=== PATIENT | male | born 1940 | race Caucasian/White ===

== ENCOUNTER 2020-10-17 10:25 | Outpatient (CLI) | payer MEDICARE, BC, SELFPAY ==
--- NOTE | ~2020-10-17 | US_ITS ---
EXAMINATION: US thyroid EXAM DATE: 10/17/2020 10:52 INDICATION: E05.90 - Thyrotoxicosis, unspecified without thyrotoxic crisis or storm. TECHNIQUE: Multiple grayscale and Doppler images of the thyroid were obtained (by a technologist who performed the scan) and subsequently reviewed. Individual nodules and recommendations may be reporte d in accordance with TI-RADS system as designated by the 2017 ACR White Paper TI-RADS committee. Comp arison is made to prior examination from 06/18/2019. FINDINGS: The right thyroid lobe measures 6.7 x 3.1 x 3.0 cm, moderately enlarged, and the left measures 5.9 x 3.2 x 2.7 cm, also moderately enlarged. Diffusely heterogeneous thyroid echogenicity. Several thyroid nodules, largest is predominantly cystic in the right thyroid lobe measuring up to 1.3 cm, containin g echogenic foci with large, tail artifact, consistent with colloid cyst. IMPRESSION: Stable multinodular goiter. Return to clinical follow-up, repeat ultrasound if addition al palpable abnormality develops. Reviewed, dictated and finalized at location A. IMPRESSION: Stable multinodular goiter. Return to clinical follow-up, repeat ultrasound if additional palpable abnormality develops.
== END 2020-10-17 10:26 | disposition home or self-care (01) ==
PROVIDERS: PCP Internal Medicine Endocrinology, Diabetes & Metabolism; Visit Provider Internal Medicine Endocrinology, Diabetes & Metabolism
DX: E04.2 Nontoxic multinodular goiter (principal); E05.90 Thyrotoxicosis, unspecified without thyrotoxic crisis or storm
CPT/HCPCS: 76536

== ENCOUNTER 2021-01-22 09:23 | Outpatient (CLI) | payer MEDICARE, BC, SELFPAY ==
--- NOTE | 2021-02-15 19:03 | WPDSLEEPSTUD ---
Sleep Study Date of Study: 01/22/21 Ordering Provider: Elizabeth Johnson MD Interpreting Physician: Elizabeth Johnson MD Sleep Study Type: Polysomnogram Height: 1.83 m Weight: 139.253 kg Body Mass Index: 41.6 Neck Circumference (inches): 18 [place]: 3 Reason for Sleep Study Known obstructive sleep apnea, on auto PAP with an old machine, needs re-evaluation; atrial fibrillation Sleep History Jose Gates Jr is a 81 year old man who has not had enough sleep for many years. 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 He did not have enough sleep for many years. He has a long history of obstructive sleep apnea, has a device from 2004 which is on AutoPap 7- 16 cm since 2014. He has no compliance data since 2018. His legs bother him significantly and he moves his legs constantly which tears up his sheets. Some of this is due to right hip pain and he is scheduled for a right hip replacement on February 19. He rarely naps, maybe once or twice per month. He does not have a morning headache and does not have a dry mouth in the morning. As far as memory mood and concentration he can't remember things as well as he use to. He does not sleep with a pillow. He uses a small blanket rolled into a tube. He has gained 20 lb in the last year. He swallows air at night. He only has problems with heartburn symptoms if he eats after 7:30 p.m. and has spicy food. He does not have any problem with nasal allergies. He blows his nose once in the morning. His sleeps in another room because he flails his arms at night and she does not want to get a broken nose. He has slept like this for many years. He does not wake up feeling short of breath. He rarely snores while using APAP. He does not sweat excessively at night or notice his heart pounding at night. He rarely falls asleep in the day, rarely falls asleep involuntarily, and rarely falls asleep while driving. He does not have loss of muscle tone with strong emotion. He rarely has daytime difficulties due to sleepiness, now retired. He does not feel paralyzed on waking or falling asleep. He does not have vivid dreams on falling asleep or waking. He is not afraid to go to sleep. He does not have nightmares. He does not recall his dreams. He does not have sadness, depression or anxiety. He rarely notices parts of his body jerking, rarely kicks at night, rarely has aching and crawling feelings in his legs. He does not have morning jaw pain and does not grind his teeth at night. He is frequently awakened at [facility] with pain, wakes up feeling stiff, with sore achy muscles and pain in the neck and spine. 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 His normal bedtime is between 11:00 p.m. and 11:30 p.m. falling asleep quickly, waking 3-4 times at night due to hip pain, and this may occur 2-3 hours after sleep onset. Other than that he does not move until about 5:00 a.m. when he possibly urinates again. Sometimes he goes back to bed until 5:30 - 6:00 a.m. Sometimes he returns to bed until 7:30 a.m.. A nap last 30 minutes and occurs between 2:00 p.m. and 5:00 p.m. A short nap may be refreshing. He always wakes up feeling refreshed. Habits: no coffee, little tea; No tobacco. No alcohol or recreational drugs. PMFSH Past Medical History Medical History (Updated 02/10/21 @ 11:00 by Armando Miner MD) Afib Cancer CHF (congestive heart failure), NYHA class I Heart disease Hyperthyroidism Obesity Obstructive sleep apnea SOB (shortness of breath) Thyroid disease Surgical History Surgical History (Updated 02/10/21 @ 10:57 by Armando Miner MD) History of bilateral knee replacement Family History Family History Mother Diabetes mellitus Father Family history of malignant neoplasm Family history of chronic obstr
[2021-02-15 19:07] VITALS: BMI 41.6
== END 2021-01-23 05:30 | disposition home or self-care (01) ==
LOC: ANHCSM 09:24
PROVIDERS: PCP Family Medicine; Visit Provider Internal Medicine Critical Care Medicine
DX: G47.33 Obstructive sleep apnea (adult) (pediatric) (principal)
CPT/HCPCS: 95810

== ENCOUNTER 2021-02-06 12:04 | Emergency (ER) | payer MEDICARE, BC, SELFPAY ==
--- NOTE | ~2021-02-06 | XR_ITS ---
XR ankle LT min 3V DATE: 02/06/2021 12:26 INDICATION: Fall. Medial pain. TECHNIQUE: 4 views COMPARISON: None FINDINGS: Prominent plantar and minimal posterior calcaneal enthesopathy. There are osteoarthritic changes at the tarsal and tarsometatarsal joints. There is diffuse soft tissue swelling of the ankle. No fracture or dislocation of the ankle or disruption of the ankle mortise is detected. IMPRESSION: Soft tissue swelling No fracture or dislocation of the ankle Calcaneal enthesopathy Osteoarthritic changes of the foot Reviewed, dictated and finalized at location B.
--- NOTE | ~2021-02-06 | XR_ITS ---
EXAMINATION: XR tibia fibula LT 2V INDICATION: Bruising and leg pain after fall TECHNIQUE: Two views of the left tibia and fibula are obtained on four radiographs. COMPARISON: None available FINDINGS: There is soft tissue swelling of the leg. No fracture is identified. Changes of total knee arthroplasty are noted. 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 Heterotopic ossification projecting post erior to the knee could reflect calcified loose bodies. IMPRESSION: 1. Soft tissue swelling without acute osseous abnormality. Reviewed, dictated and finalized at location A.
[2021-02-06 12:11] VITALS: BP 130/89; PULSE 97; RESP 18; O2SAT 96
--- NOTE | 2021-02-06 13:41 | ED.LOWEXIN ---
HPI - Extremity Injury (Lower) General Chief Complaint: Extremity Injury, Lower Stated Complaint: I stepped in a hole on tuesday left ankle Time Seen by Provider: 02/06/21 12:08 Source: RN notes reviewed History of Present Illness HPI Narrative: Patient presents emerged department from home for left ankle pain. Patient states that 5 days ago he stepped into a hole while walking and twisted his left ankle he states he had pain in his ankle since that time as well as swelling and bruising patient states pain is over the medial lateral and posterior left ankle denies any other trauma or injury patient states he not taking thing for pain at home does not wish to take anything he denies any numbness or tingling the extremities or any other Related Data Home Medications Medication Instructions Recorded Confirmed cholecalciferol (vitamin D3) 25 1,000 unit PO DAILY 07/30/19 12/02/20 mcg (1,000 unit) capsule furosemide 40 mg tablet 40 mg PO DAILY tablet 07/30/19 12/02/20 metoprolol tartrate 25 mg tablet 25 mg PO DAILY 07/30/19 12/02/20 rosuvastatin 10 mg tablet 10 mg PO DAILY 07/30/19 12/02/20 zinc amino acid chelate 50 mg 50 mg PO DAILY tablet 07/30/19 12/02/20 tablet apple cider vinegar 600 mg capsule mg PO 10/09/19 12/02/20 ascorbate calcium (vitamin C) 500 500 mg PO BID 10/09/19 12/02/20 mg tablet rivaroxaban 20 mg tablet 20 mg PO DAILY 10/09/19 12/02/20 mecobalamin (vitamin B12) 1,000 1,000 mcg PO DAILY 12/02/20 12/02/20 mcg chewable tablet aspirin 81 mg tablet,delayed 81 mg PO DAILY 01/20/21 release Allergies Allergy/AdvReac Type Severity Reaction Status Date / Time naproxen [From Aleve] Allergy Mild muscle Verified 02/06/21 12:17 soreness Review of Systems Review of Systems: Gen.: Denies fevers or chills Musculoskeletal: See HPI Neuro: Denies numbness, tingling, weakness Skin: Denies rash Endo: Denies DM PMFSH Past Medical History Medical History Afib Cancer CHF (congestive heart failure), NYHA class I Heart disease Hyperthyroidism Obesity Obstructive sleep apnea SOB (shortness of breath) Thyroid disease Family History Family History Mother Diabetes mellitus Father Family history of malignant neoplasm Family history of chronic obstructive pulmonary disease Social History Social History Smoking status: Never smoker Second hand tobacco smoke exposure: No Alcohol intake: never Substance use: never Substance use type: does not use Gender identity (if verbalized by the patient): Male Exam Narrative: APPEARANCE: No acute distress, nontoxic, resting in bed Eyes: EOMI HEENT: Normocephalic, atraumatic, RESPIRATORY: No respiratory distress MUSCULOSKELETAl: Swelling ecchymosis over the medial lateral and posterior ankle swelling into the foot pain with full dorsiflexion of the foot dorsalis pedis pulse 2+ neurovascular intact no tenderness of the proximal fibula patient is unable to fully lay on his stomach for full Gil test but attempted modified Gil test laying on his side does show tenderness in the left calf with movement of the foot NEURO: Awake and alert. Following commands, speech normal, no focal deficits SKIN:: Warm, dry. Normal Color no rash or lesions Course Course Emergency Course: Called discussed with Dr. Miner discussed x-ray results recommends patient uses walker with Isma wrap and follow-up as an outpatient Discussed with patient results of workup and diagnosis. Discussed need for follow-up with primary care, proper use of medication, and reasons to return to the emergency department. Patient understands and agrees to current treatment plan patient does have a walker with him in the ED today Vital Signs Vital signs: Vital Signs Pulse Rate 97 02/06/21 12:11 Respiratory Rate 18
== END 2021-02-06 14:03 | disposition home or self-care (01) ==
PROVIDERS: Emergency Provider Emergency Medicine; PCP Family Medicine
DX: S93.402A Sprain of unspecified ligament of left ankle, initial encounter (principal); I48.91 Unspecified atrial fibrillation; I50.9 Heart failure, unspecified; E05.90 Thyrotoxicosis, unspecified without thyrotoxic crisis or storm; G47.33 Obstructive sleep apnea (adult) (pediatric); E07.9 Disorder of thyroid, unspecified; Z79.82 Long term (current) use of aspirin; Z79.01 Long term (current) use of anticoagulants; X50.9XXA Other and unspecified overexertion or strenuous movements or postures, initial encounter
CPT/HCPCS: 73590; 73610; 99284

== ENCOUNTER 2021-02-20 21:55 | Inpatient (IN) | payer MEDICARE, BC, SELFPAY ==
--- NOTE | ~2021-02-20 | XR_ITS ---
XR hip RT min 2V DATE: 02/21/2021 09:11 INDICATION: Recent hip replacement. Right leg weakness. TECHNIQUE: 4 views of right hip COMPARISON: None FINDINGS: Right hip arthroplasty. No fracture or dislocation is detected. IMPRESSION: Right hip arthroplasty Reviewed, dictated and finalized at location A. IMPRESSION: Right hip arthroplasty
--- NOTE | ~2021-02-20 | CT_ITS ---
EXAMINATION: CT brain wo con DATE: 02/20/2021 23:15 INDICATION: Headache. Headache behind eyes. TECHNIQUE: Computed tomography (CT) of the head was performed without intravenous contrast. The mA wa s adjusted according to patient size. Iterative reconstruction technique was employed. Exam dose: 75 6.67 mGy-cm total exam DLP. COMPARISON: None FINDINGS: Bilateral vertebral artery and carotid siphon internal carotid artery calcifications. There is nonspecific diminished attenuation of the cerebral white matter, likely due to chronic small vessel ischemic changes. There is age-consistent moderate cerebral volume loss. No intracranial mass lesion or hemorrhage or cerebrovascular accident is evident. No midline shift or mass effect effect. The orbital contents are unremarkable. No subdural or epidural hematoma. No skull fracture or bone destruction. Included paranasal sinuses and mastoid air cells are unremarka ble. IMPRESSION: Cerebral atherosclerosis and chronic small vessel ischemic changes of cerebral white mat ter No acute intracranial finding Reviewed, dictated and finalized at Location A. Reviewed, dictated and finalized at location A. IMPRESSION: Cerebral atherosclerosis and chronic small vessel ischemic changes of cerebral white matter No acute intracranial finding
--- NOTE | ~2021-02-20 | CT_ITS ---
EXAMINATION: CT lumbar spine wo con DATE: 02/22/2021 14:16 INDICATION: Inability to feel the urge to urinate. TECHNIQUE: Computed tomography (CT) of the lumbar spine was performed without intravenous contrast. A utomated exposure control and iterative reconstruction technique were employed. The dose-length produ ct was 1538.11 mGy-cm. COMPARISON: None FINDINGS: There is 7 degrees levocurvature of lumbar spine. There is 3 mm retrolisthesis of L1 on L2 and 4 mm anterolisthesis of L4 on L5. There is mild chronic anterior wedging of T11-L1 vertebral bodi es. There is severely decreased disc height from T12-L1 through L5-S1. There is interbody fusion at L 2-L3. There are bridging endplate osteophytes at T12-L1. There is a total right hip arthroplasty. The re is severe left hip osteoarthritis. The following disc levels are specifically discussed: L1-L2: The disc is bulging. There is severe bilateral facet joint osteoarthritis. There is moderate b ilateral neural foraminal stenosis. There is mild central canal stenosis. L2-L3: The disc is bulging. There is severe right and moderate left facet joint osteoarthritis. There is moderate bilateral neural foraminal stenosis. There is mild central canal stenosis. L3-L4: The disc is bulging. There is severe right and moderate left facet joint osteoarthritis. There is moderate bilateral neural foraminal stenosis. There is severe central canal stenosis. L4-L5: The disc is bulging. There is severe bilateral facet joint osteoarthritis. There is moderate b ilateral neural foraminal stenosis. There is moderate central canal stenosis. L5-S1: The disc is bulging. There is severe bilateral facet joint osteoarthritis. There is mild right and moderate left neural foraminal stenosis. There is mild central canal stenosis. IMPRESSION: 1. Severe lumbar spondylosis. Reviewed, dictated and finalized at location A.
--- NOTE | ~2021-02-20 | CT_ITS ---
EXAMINATION: CTA chest PE protocol DATE: 02/20/2021 23:59 INDICATION: Shortness of breath. Weakness, tachycardia after hip replacement. TECHNIQUE: Computed tomography angiography (CTA) of the chest was performed with 100 mL Omnipaque-350 intravenous contrast timed to evaluate the pulmonary arteries. Coronal maximum intensity projection 3D-reconstructions were created by the technologist. Automated exposure control and iterative reconst ruction technique were employed. Exam dose: 923.93 mGy-cm total exam DLP. COMPARISON: None. FINDINGS: Bilateral gynecomastia. There is substernal thyroid goiter. There are numerous thyroid calcifications and heterogeneous densi ty of the thyroid gland. No thoracic aortic aneurysm or dissection. Normal heart size. Prominent coronary artery calcification . No pericardial or pleural effusion. No hilar or mediastinal mass lesion or lymphadenopathy. The pulmonary arteries are moderately opacified with contrast material, without evidence of pulmonary embolism. There is minimal dependent atelectasis of the lungs. No pulmonary infiltrate or consolidation or susp icious pulmonary mass lesion is evident. There is old pulmonary granulomatous disease including calcified pulmonary granulomas and calcified r ight hilar and subcarinal nodes. There are numerous hepatic and splenic calcified granulomas. There is soft tissue thickening at the distal esophagus which may be due to esophagitis. Severe degenerative disc disease in the lower cervical spine. Prominent degenerative change and spurr ing of the thoracic spine. IMPRESSION: No evidence of pulmonary embolism Bilateral gynecomastia Reviewed, dictated and finalized at Location A. Reviewed, dictated and finalized at location A.
[2021-02-20 21:55] VITALS: BP 132/77; PULSE 116; RESP 20; TEMP 36.6; O2SAT 94
--- NOTE | 2021-02-20 22:25 | ED.WEAKNESS ---
HPI - Weakness General Chief complaint: Weakness Stated complaint: AMB Time Seen by Provider: 02/20/21 22:25 Source: patient Mode of arrival: EMS Limitations: no limitations History of Present Illness HPI Narrative: 81-year-old man brought to the emergency department for weakness after he was discharged from [facility] today. He was admitted yesterday for elective right hip replacement. Patient states that he walked stairs unassisted in the hospital before discharge and on his way home he noticed that he had a mild headache. Patient then walked from his car into his house and then able to walk further. He crawled in his hands and knees to his bedroom but was unable to get on the bed. His friends helped him into bed and he slept for a few hours. He took a pain pill. When he woke up he tried to get up to use the restroom and was so weak he could not sit at the side of the bed, sliding onto the floor. He stopped his Xarelto and aspirin prior to the procedure and has not resumed them yet. He denies unilateral weakness, fever, vomiting, nausea, change in appetite, hematuria, dysuria, numbness or tingling, and falls. MD Complaint: generalized weakness Onset (ago): hour(s) (6) Duration: constant and progressively worsening Location: generalized Migration: none Severity: moderate Relieving factors: none Exacerbating factors: none Context: recent surgery Related Data Home Medications Medication Instructions Recorded Confirmed cholecalciferol (vitamin D3) 25 1,000 unit PO DAILY 07/30/19 02/20/21 mcg (1,000 unit) capsule furosemide 40 mg tablet 40 mg PO DAILY tablet 07/30/19 02/20/21 metoprolol tartrate 25 mg tablet 25 mg PO DAILY 07/30/19 02/20/21 rosuvastatin 10 mg tablet 10 mg PO DAILY 07/30/19 02/20/21 zinc amino acid chelate 50 mg 50 mg PO DAILY tablet 07/30/19 02/20/21 tablet ascorbate calcium (vitamin C) 500 500 mg PO BID 10/09/19 02/20/21 mg tablet rivaroxaban 20 mg tablet 20 mg PO DAILY 10/09/19 02/20/21 mecobalamin (vitamin B12) 1,000 1,000 mcg PO DAILY 12/02/20 02/20/21 mcg chewable tablet aspirin 81 mg tablet,delayed 81 mg PO DAILY 01/20/21 02/20/21 release Allergies Allergy/AdvReac Type Severity Reaction Status Date / Time naproxen [From Aleve] Allergy Mild muscle Verified 02/06/21 12:17 soreness Review of Systems Review of Systems: All systems reviewed & are unremarkable except as noted in HPI and below Constitutional: Constitutional: Denies chills and Denies fever(s) Eyes: Eyes: Denies change in vision and Denies photophobia ENT: Denies nasal congestion and Denies sore throat Cardiovascular: Cardiovascular: Denies chest pain and Denies radiating jaw, neck or arm pain Respiratory: Respiratory: Denies cough, Denies dyspnea and Denies wheezing Gastrointestinal: Gastrointestinal: Denies abdominal pain, Denies diarrhea, Denies nausea and Denies vomiting Genitourinary: Genitourinary: Denies hematuria, Denies dysuria and Denies urinary frequency Musculoskeletal: Musculoskeletal: Reports arthralgias (08/13 right hip) and Denies joint swelling Neurologic: Denies confusion, Denies vertigo, Denies dizziness, Denies syncope, Reports headache(s), Denies focal weakness, Denies numbness and Reports weakness Endocrine: Endocrine: Denies fatigue, Denies polydipsia and Denies polyuria Hematologic/Lymphatic: Hematologic/Lymphatic: Denies easy bleeding and Denies easy bruising Allergic/Immunologic: Allergic/Immunologic: Denies lip swelling and Denies throat swelling PMFSH Past Medical History Medical History Afib Cancer CHF (congestive heart failure), NYHA class I Heart disease Hyperthyroidism Obesity Obstructive sleep apnea SOB (shortness of breath) Thyroid disease Surgical History Surgical History History of bilateral knee replacement Status post right hip replacement Family Hist
--- NOTE | 2021-02-20 22:34 | ECG_ITS ---
Measurements Intervals [place] Rate: 107 P: IA: 0 QRS: -54 QRSD: 126 T: 40 QT: 328 QTc: 439 Interpretive Statements ATRIAL FIBRILLATION WITH RAPID VENTRICULAR RESPONSE LEFT AXIS DEVIATION LEFT BUNDLE BRANCH BLOCK BASELINE ARTIFACT- I, II, III, AVR, AVL, AVF, V1 ABNORMAL ECG Electronically Signed On 02-23-2021 7:01:29 CDT by Travis Schroeder D.O.
[2021-02-20 22:59] LABS: Basophils Absolute Auto 0.07 K/mm3 (0.00-0.10); Basophils Percent Auto 0.5 % (0.0-1.0); Eosinophils Absolute Auto 0.01 K/mm3 (0.02-0.50); Eosinophils Percent Auto 0.1 % (1.0-6.0); Hematocrit 37.3 % (37.0-46.0); Hemoglobin 12.3 g/dL (12.4-15.3); Immature Granulocyte Absolute 0.09 K/mm3 (0.00-0.00); Immature Granulocyte Percent A 0.6 % (0.0-0.0); Lymphocytes Absolute Auto 0.89 K/mm3 (1.10-4.50); Lymphocytes Percent Auto 6.2 % (18.0-42.0); Mean Corpuscular Hemoglobin 31.4 pg (27.0-31.0); Mean Corpuscular Volume 95.2 fL (78.0-102.0); Mean Platelet Volume 10.6 fl (8.7-11.0); Monocytes Absolute Auto 1.65 K/mm3 (0.10-0.90); Monocytes Percent Auto 11.4 % (2.0-11.0); Neutrophils Absolute Auto 11.8 K/mm3 (1.7-7.2); Neutrophils Percent Auto 81.2 % (50.0-70.0); Platelet Count Result 222 K/mm3 (150-420); Red Blood Count 3.92 M/mm3 (4.70-6.10); Red Cell Distribution Width 14.4 % (11.6-14.4); White Blood Count 14.5 K/mm3 (4.8-10.8)
[2021-02-20 23:14] LABS: INR 1.1; Partial Thromboplastin Time 26.3 SEC (23.90-30.70); Prothrombin Time 11.9 Seconds (9.50-12.10)
[2021-02-20 23:18] LABS: Lactic Acid Reflex 3.5 mmol/L (0.4-2.0)
[2021-02-20] MEDS: SODIUM CHLORIDE 0.9% IV 1,000 ML 999 ML IV CONT (23:23)
[2021-02-20 23:26] LABS: Alanine Aminotransferase 35 U/L (16-63); Albumin Level 2.8 g/dL (3.4-5.0); Alkaline Phosphatase 65 U/L (46-116); Anion Gap 13 mmol/L (8-16); Aspartate Amino Transferase 40 U/L (15-37); Bilirubin,Total 0.5 mg/dL (0.00-1.00); Blood Urea Nitrogen 27 mg/dL (7-18); Calcium 8.4 mg/dL (8.5-10.1); Carbon Dioxide 23 mmol/L (21-32); Chloride 101 mmol/L (98-108); Estimated CRCL calculation 52 ml/min; Estimated Glomerular Filt Rate 47; Glucose 110 mg/dL (70-99); Osmolality Calculated 290 mOsm/kg (285-295); Potassium 4.5 mmol/L (3.5-5.1); Sodium 137 mmol/L (136-145); Total Protein 6.8 g/dL (6.4-8.2)
[2021-02-20 23:27] LABS: CRP 12.5 mg/dL (0.0-0.9); NT Pro B Type Natriuretic Pept 673 pg/mL (0-450); Troponin I 12.5 ng/L (0.00-60.4)
[2021-02-20 23:47] LABS: Thyroid Stimulating Hormone Reflex 1.36 u/IU/mL (0.36-3.74)
[2021-02-21] VITALS (12 sets, daily range): BP systolic 114–136; BP diastolic 60–85; PULSE 85–108; RESP 18–22; TEMP 36.3–37.6; O2SAT 94–99; BMI 50.7
[2021-02-21 00:15] LABS: Add Urine Microscopic? NO; Appearance Urine Clear (Clear); Bilirubin Urine Negative (Negative); Blood Urine Negative (Negative); Color Urine Light Yellow (Yellow); Glucose Urine UA Negative (Negative); Ketones Urine Negative (Negative); Leukocyte Esterase Ur Negative (Negative); Nitrate Urine Negative (Negative); Protein Urine Negative (Negative); Urobilinogen Urine 0.2 mg/dL (0.2-1.0); pH Urine 5.5 (5.0-8.0)
[2021-02-21] MEDS: SODIUM CHLORIDE 0.9% IV 1,000 ML 999 ML IV CONT (00:48)
--- NOTE | 2021-02-21 01:15 | ADMGEN ---
This patient, Jose Gates Jr., was admitted to 2nd Floor Room 203-1. Patient/family oriented to hospital policies and general routines including ID bracelet, bed and alarms, visiting hours, pain management, procedures, bathroom and other care routines, personal items, smoking policy, room service/diet, and visiting hours. IV bolus 1 liter in progress, without signs of infection or infiltration. Information on how to activate the Rapid Response Team has been discussed. Patient/Family are encouraged to report perceived risks to care and to ask questions if they do not understand what they are told or what they should do.
[2021-02-21 01:56] LABS: Reflex Lactic Acid Yes or No Add Lactic
[2021-02-21] MEDS: RIVAROXABAN 10 MG TABLET 20 MG PO ×2 (02:12→17:53)
[2021-02-21] MEDS: SODIUM CHLORIDE 0.9% IV 1,000 ML 150 ML IV CONT (02:25)
[2021-02-21 02:29] LABS: SARS-CoV-2 Ag Negative (Negative)
[2021-02-21 02:32] LABS: Lactic Acid 2.1 mmol/L (0.4-2.0)
[2021-02-21 02:32] LABS: Troponin I 15.1 ng/L (0.00-60.4)
[2021-02-21 03:02] LABS: SARS-CoV-2 RNA PCR Negative (Negative)
[2021-02-21 05:46] LABS: Basophils Absolute Auto 0.06 K/mm3 (0.00-0.10); Basophils Percent Auto 0.5 % (0.0-1.0); Eosinophils Absolute Auto 0.01 K/mm3 (0.02-0.50); Eosinophils Percent Auto 0.1 % (1.0-6.0); Hematocrit 32.9 % (37.0-46.0); Hemoglobin 10.8 g/dL (12.4-15.3); Immature Granulocyte Absolute 0.09 K/mm3 (0.00-0.00); Immature Granulocyte Percent A 0.7 % (0.0-0.0); Lymphocytes Absolute Auto 1.26 K/mm3 (1.10-4.50); Mean Corpuscular HGB Conc 32.8 g/dL (32.0-36.0); Mean Corpuscular Hemoglobin 31.7 pg (27.0-31.0); Mean Corpuscular Volume 96.5 fL (78.0-102.0); Mean Platelet Volume 10.8 fl (8.7-11.0); Monocytes Absolute Auto 1.27 K/mm3 (0.10-0.90); Monocytes Percent Auto 10.1 % (2.0-11.0); Neutrophils Absolute Auto 9.9 K/mm3 (1.7-7.2); Neutrophils Percent Auto 78.6 % (50.0-70.0); Platelet Count Result 170 K/mm3 (150-420); Red Blood Count 3.41 M/mm3 (4.70-6.10); Red Cell Distribution Width 14.7 % (11.6-14.4); White Blood Count 12.6 K/mm3 (4.8-10.8)
[2021-02-21 06:01] LABS: Lactic Acid Reflex 1.7 mmol/L (0.4-2.0)
[2021-02-21 06:09] LABS: Alanine Aminotransferase 33 U/L (16-63); Albumin Level 2.4 g/dL (3.4-5.0); Alkaline Phosphatase 56 U/L (46-116); Anion Gap 8 mmol/L (8-16); Aspartate Amino Transferase 44 U/L (15-37); Bilirubin,Total 0.6 mg/dL (0.00-1.00); Blood Urea Nitrogen 21 mg/dL (7-18); Carbon Dioxide 27 mmol/L (21-32); Chloride 104 mmol/L (98-108); Estimated CRCL calculation 69 ml/min; Estimated Glomerular Filt Rate 57; Glucose 112 mg/dL (70-99); Osmolality Calculated 292 mOsm/kg (285-295); Potassium 4.2 mmol/L (3.5-5.1); Sodium 139 mmol/L (136-145); Total Protein 6.1 g/dL (6.4-8.2)
[2021-02-21 06:15] LABS: Troponin I 16.8 ng/L (0.00-60.4)
--- NOTE | 2021-02-21 06:20 | PC.NURSE ---
spills some urine from urinal with each void.
[2021-02-21 06:29] LABS: NT Pro B Type Natriuretic Pept 1225 pg/mL (0-450)
--- NOTE | 2021-02-21 07:04 | PC.NURSE ---
Complete bed change.
--- NOTE | 2021-02-21 08:30 | PM.IMHP ---
H&P: HPI History of Present Illness Date/Time: 02/21/21 08:30 Jose Gates is a 81 year old male who is admitted under Observation for MAY and weakness after Right Hip replacement 2 days ago. Pt states that he had Hip Replacement 2 days ago. For the procedure he was given an epidural and general anesthesia as he recalls. Pt explains that when he got home he walked through the garage and became weak as he entered his home. He was unable to get up and required the assistance of some members of the [employer] to get him up and into bed. Pt states that he had developed a MAY, felt weak/tired. He denies changes in vision, hearing, speech, CP, breathing difficulties, changes in Bowel and Bladder function other than increased frequency of both. Chief Complaint: Unable to get up after getting home from right hip replacement Review of Systems Constitutional: Constitutional: Reports no additional constitutional complaints, Denies body ache(s), Denies chills, Denies fatigue and Denies fever(s) Eyes: Eyes: Reports no additional eye complaints ENT: Reports system reviewed and no additional complaints, except as documented Cardiovascular: Cardiovascular: Reports no additional cardiovascular complaints, Denies chest pain, Denies chest pain at rest and Denies syncope Respiratory: Respiratory: Reports no additional respiratory complaints, Denies cough, Denies dyspnea and Denies dyspnea on exertion Gastrointestinal: Gastrointestinal: Reports no additional gastrointestinal complaints and Denies abdominal pain Musculoskeletal: Musculoskeletal: Reports no additional musculoskeletal complaints Neurologic: Reports system reviewed and no additional complaints, except as documented Psychiatric: Psychiatric: Reports no additional psychiatric complaints [facility] Past Medical History Medical History (Updated 02/21/21 @ 13:41 by FREDDIE Ross) Afib Cancer CHF (congestive heart failure), NYHA class I Heart disease Hyperthyroidism Obesity Obstructive sleep apnea SOB (shortness of breath) Thyroid disease Surgical History Surgical History History of bilateral knee replacement Status post right hip replacement Family History Family History Mother Diabetes mellitus Father Family history of malignant neoplasm Family history of chronic obstructive pulmonary disease Social History Social History Smoking status: Never smoker Second hand tobacco smoke exposure: No Alcohol intake: former Substance use: never Substance use type: does not use Gender identity (if verbalized by the patient): Male Spiritual care concerns: No Meds Home Medications and Allergies Home Medications Medication Instructions Recorded Confirmed Type cholecalciferol (vitamin D3) 25 1,000 unit PO DAILY 07/30/19 02/20/21 History mcg (1,000 unit) capsule furosemide 40 mg tablet 40 mg PO DAILY tablet 07/30/19 02/20/21 History metoprolol tartrate 25 mg tablet 25 mg PO DAILY 07/30/19 02/20/21 History rosuvastatin 10 mg tablet 10 mg PO DAILY 07/30/19 02/20/21 History zinc amino acid chelate 50 mg 50 mg PO DAILY tablet 07/30/19 02/20/21 History tablet ascorbate calcium (vitamin C) 500 500 mg PO BID 10/09/19 02/20/21 History mg tablet rivaroxaban 20 mg tablet 20 mg PO DAILY 10/09/19 02/20/21 History methimazole 10 mg tablet 10 mg PO DAILY 90 Days #90 tablet 10/16/20 02/20/21 Rx mecobalamin (vitamin B12) 1,000 1,000 mcg PO DAILY 12/02/20 02/20/21 History mcg chewable tablet aspirin 81 mg tablet,delayed 81 mg PO DAILY 01/20/21 02/20/21 History release Allergies Allergy/AdvReac Type Severity Reaction Status Date / Time naproxen [From Aleve] Allergy Mild muscle Verified 02/06/21 12:17 soreness Vital Signs Vital Signs - 24 hr 02/20/21 21:55 02/21/21 00:25 02/21/21 00:30
[2021-02-21] MEDS: METOPROLOL TARTRATE 25 MG TABLET PO (09:10)
[2021-02-21] MEDS: methiMAzole 10 MG TAB PO (09:10)
--- NOTE | 2021-02-21 14:32 | PC.NURSE ---
at 1419 patient is now a inpatient per keyla quijano., chf.
--- NOTE | 2021-02-21 14:35 | PC.NURSE ---
1145 message left for pt and called and claims they will be tuesday for eval.
[2021-02-21] MEDS: ROSUVASTATIN 10 MG TABLET PO (20:47)
[2021-02-22] VITALS (7 sets, daily range): BP systolic 103–125; BP diastolic 55–74; PULSE 80–110; RESP 18–20; TEMP 36.6–37.7; O2SAT 93–98
[2021-02-22 05:23] LABS: Hematocrit 32.9 % (37.0-46.0); Hemoglobin 10.5 g/dL (12.4-15.3); Mean Corpuscular HGB Conc 31.9 g/dL (32.0-36.0); Mean Corpuscular Hemoglobin 31.2 pg (27.0-31.0); Mean Corpuscular Volume 97.6 fL (78.0-102.0); Mean Platelet Volume 10.1 fl (8.7-11.0); Platelet Count Result 157 K/mm3 (150-420); Red Blood Count 3.37 M/mm3 (4.70-6.10); Red Cell Distribution Width 14.9 % (11.6-14.4); White Blood Count 10.5 K/mm3 (4.8-10.8)
[2021-02-22 05:33] LABS: Anion Gap 8 mmol/L (8-16); Blood Urea Nitrogen 17 mg/dL (7-18); Calcium 8.2 mg/dL (8.5-10.1); Carbon Dioxide 27 mmol/L (21-32); Chloride 106 mmol/L (98-108); Estimated CRCL calculation 55 ml/min; Estimated Glomerular Filt Rate > 60; Glucose 102 mg/dL (70-99); Osmolality Calculated 293 mOsm/kg (285-295); Potassium 4.1 mmol/L (3.5-5.1); Sodium 141 mmol/L (136-145)
[2021-02-22] MEDS: methiMAzole 10 MG TAB PO (08:53)
[2021-02-22] MEDS: METOPROLOL TARTRATE 25 MG TABLET PO (08:53)
--- NOTE | 2021-02-22 13:06 | PM.IMPN ---
Progress Note: A&P Assessment and Plan (1) CHF (congestive heart failure), NYHA class I: Code(s): I50.9 - Heart failure, unspecified <Silas Hart FREDDIE Mg - Last Filed: 02/22/21 15:28> Status: Acute <Silas BradyFREDDIE alvarez - Last Filed: 02/22/21 15:28> Assessment and Plan: P-BNP 1225, lungs clear, non-pitting edema LE, monitor P-BNP, VSQ4H, monitor SpO2, supplemental O2 as needed, Monitor for fluid overload, heart healthy diet 02/22/2021 Will obtain P-BNP in the AM, No difficulty breathing, no CP, no LE swelling other than right thigh r/t Hip surgery <Silas GipsonFREDDIE Ferguson - Last Filed: 02/22/21 15:28> (2) Weakness: Code(s): R53.1 - Weakness <Silas GipsonFREDDIE Ferguson - Last Filed: 02/22/21 15:28> Status: Acute <Silas Hart FREDDIE Mg - Last Filed: 02/22/21 15:28> Assessment and Plan: PT and OT for the following: Relieve pain, Improve movement or ability, Prevent or recover from an injury, Prevent disability or surgery, Rehab after injury or surgery, Work on balance to prevent a slip or fall, Learn to use assistive devices like a walker or cane as needed. 02/22/2021 PT and or OT should be by today to evaluation this Pt. He does have difficulty standing and turning and sitting again from bed to wheelchair <Silas LeonelaFREDDIE Ferguson - Last Filed: 02/22/21 15:28> (3) Acute dehydration: Code(s): E86.0 - Dehydration <Silas GipsonFREDDIE Ferguson - Last Filed: 02/22/21 15:28> Status: Acute <Silas GipsonFREDDIE Ferguson - Last Filed: 02/22/21 15:28> Assessment and Plan: Pt was given total of 3 L IVF, Monitor I&O, monitor for fluid overload, Tolerating PO fluids well. 02/22/2021 Pt tolerating PO fluids well. <Silas GipsonFREDDIE Ferguson - Last Filed: 02/22/21 15:28> (4) Hyperthyroidism: Code(s): E05.90 - Thyrotoxicosis, unspecified without thyrotoxic crisis or storm <Silas Hart FREDDIE Mg - Last Filed: 02/22/21 15:28> Status: Acute <Silas BradyFREDDIE alvarez - Last Filed: 02/22/21 15:28> Assessment and Plan: Continue Methimazole <Silas Hart FREDDIE Mg - Last Filed: 02/22/21 15:28> (5) Status post right hip replacement: Code(s): Z96.641 - Presence of right artificial hip joint <Silas GipsonFREDDIE Ferguson - Last Filed: 02/22/21 15:28> Status: Acute <Silas BradyFREDDIE alvarez - Last Filed: 02/22/21 15:28> Assessment and Plan: Pt to work with PT/OT for the following: Relieve pain, Improve movement or ability, Prevent or recover from an injury, Prevent disability or surgery, Rehab after injury or surgery, Work on balance to prevent a slip or fall, Learn to use assistive devices like a walker or cane as needed 02/22/2021 Pt stated he was having the inability to feel the urge to urinate this morning, CT was ordered, prior to going for the CT of the lumbar spine he said he was starting to be able to feel the urge to urinate. Pt did not mention this yesterday. <Silas GipsonFREDDIE Ferguson - Last Filed: 02/22/21 15:28> (6) Primary hypertension: Code(s): I10 - Essential (primary) hypertension <Silas GipsonFREDDIE Ferguson - Last Filed: 02/22/21 15:28> Status: Acute <Silas GipsonFREDDIE Ferguson - Last Filed: 02/22/21 15:28> Assessment and Plan: BP stable, low tachycardia 100s, monitor VS and make adjustments to medications as needed 02/22/2021 VSS no need to adjust medications at this time. <Silas LeonelaFREDDIE Ferguson - Last Filed: 02/22/21 15:28> (7) Graves disease: Code(s): E05.00 - Thyrotoxicosis with diffuse goiter without thyrotoxic crisis or storm <FREDDIE Ross - Last Filed: 02/22/21 15:28> Status: Acute <FREDDIE Ross - Last Filed: 02/22/21 15:28> Assessment and Plan: Continue Methimazole <FREDDIE Ross - Last Filed: 02/22/21 15:28> (8) Afib: Qualifiers: Atrial fibrillation type: permanent Qualified
[2021-02-22] MEDS: RIVAROXABAN 10 MG TABLET 20 MG PO (17:53)
[2021-02-22] MEDS: HYDROcodone/acetaminophen (*CRX) 5-325 MG TABLET 1 TAB PO (22:11)
[2021-02-22] MEDS: ROSUVASTATIN 10 MG TABLET PO (22:12)
[2021-02-23] VITALS: BP 122/70; PULSE 92; RESP 20; TEMP 36.7; O2SAT 97
[2021-02-23 04:00] VITALS: BP 125/85; PULSE 97; RESP 20; TEMP 36.8; O2SAT 95
[2021-02-23] MEDS: HYDROcodone/acetaminophen (*CRX) 5-325 MG TABLET 1 TAB PO ×4 (05:06→20:11)
[2021-02-23 05:38] LABS: Hematocrit 32.7 % (37.0-46.0); Hemoglobin 10.5 g/dL (12.4-15.3); Mean Corpuscular HGB Conc 32.1 g/dL (32.0-36.0); Mean Corpuscular Hemoglobin 31.6 pg (27.0-31.0); Mean Corpuscular Volume 98.5 fL (78.0-102.0); Mean Platelet Volume 10.7 fl (8.7-11.0); Platelet Count Result 177 K/mm3 (150-420); Red Blood Count 3.32 M/mm3 (4.70-6.10); Red Cell Distribution Width 14.9 % (11.6-14.4); White Blood Count 10.3 K/mm3 (4.8-10.8)
[2021-02-23 05:59] LABS: Anion Gap 9 mmol/L (8-16); Blood Urea Nitrogen 21 mg/dL (7-18); Calcium 8.1 mg/dL (8.5-10.1); Carbon Dioxide 26 mmol/L (21-32); Chloride 106 mmol/L (98-108); Estimated CRCL calculation 71 ml/min; Estimated Glomerular Filt Rate > 60; Glucose 96 mg/dL (70-99); NT Pro B Type Natriuretic Pept 760 pg/mL (0-450); Osmolality Calculated 295 mOsm/kg (285-295); Potassium 4.2 mmol/L (3.5-5.1); Sodium 141 mmol/L (136-145)
--- NOTE | 2021-02-23 07:45 | PM.IMPN ---
Progress Note: A&P Assessment and Plan (1) CHF (congestive heart failure), NYHA class I: Code(s): I50.9 - Heart failure, unspecified Status: Acute Assessment and Plan: P-BNP 1225, lungs clear, non-pitting edema LE, monitor P-BNP, VSQ4H, monitor SpO2, supplemental O2 as needed, Monitor for fluid overload, heart healthy diet 02/22/2021 Will obtain P-BNP in the AM, No difficulty breathing, no CP, no LE swelling other than right thigh r/t Hip surgery 02/23/2021 BNP Improving 760, no issues with breathing or chest pain (2) Weakness: Code(s): R53.1 - Weakness Status: Acute Assessment and Plan: PT and OT for the following: Relieve pain, Improve movement or ability, Prevent or recover from an injury, Prevent disability or surgery, Rehab after injury or surgery, Work on balance to prevent a slip or fall, Learn to use assistive devices like a walker or cane as needed. 02/22/2021 PT and or OT should be by today to evaluation this Pt. He does have difficulty standing and turning and sitting again from bed to wheelchair 02/23/2021 Continue with PT/OT, states his thigh swelling is improved, thigh does not look as swollen and tight as first 2 days. (3) Acute dehydration: Code(s): E86.0 - Dehydration Status: Acute Assessment and Plan: Pt was given total of 3 L IVF, Monitor I&O, monitor for fluid overload, Tolerating PO fluids well. 02/22/2021 Pt tolerating PO fluids well. 02/23/2021 Resolved (4) Hyperthyroidism: Code(s): E05.90 - Thyrotoxicosis, unspecified without thyrotoxic crisis or storm Status: Acute Assessment and Plan: Continue Methimazole (5) Status post right hip replacement: Code(s): Z96.641 - Presence of right artificial hip joint Status: Acute Assessment and Plan: Pt to work with PT/OT for the following: Relieve pain, Improve movement or ability, Prevent or recover from an injury, Prevent disability or surgery, Rehab after injury or surgery, Work on balance to prevent a slip or fall, Learn to use assistive devices like a walker or cane as needed 02/22/2021 Pt stated he was having the inability to feel the urge to urinate this morning, CT was ordered, prior to going for the CT of the lumbar spine he said he was starting to be able to feel the urge to urinate. Pt did not mention this yesterday. 02/23/2021 Pt is able to sense the urger to urinate and defecate this morning, still has difficulty raising his right leg off of the bed, Vancomycin likely started as Pt was borderline septic on arrival and given Vancomycin while watching labs, VS, and Pt status. (6) Primary hypertension: Code(s): I10 - Essential (primary) hypertension Status: Acute Assessment and Plan: BP stable, low tachycardia 100s, monitor VS and make adjustments to medications as needed 02/22/2021 VSS no need to adjust medications at this time. 02/23/2021 VSS continue to monitor, no medication changes at this time (7) Graves disease: Code(s): E05.00 - Thyrotoxicosis with diffuse goiter without thyrotoxic crisis or storm Status: Acute Assessment and Plan: Continue Methimazole (8) Afib: Qualifiers: Atrial fibrillation type: permanent Qualified Code(s): I48.21 - Permanent atrial fibrillation Code(s): I48.91 - Unspecified atrial fibrillation Status: Acute Assessment and Plan: Continue Xarelto Subjective Date/time seen: 02/23/21 07:45 Pt states he is feeling good this AM. He states he is able to sense the urge to have bowel and bladder movement. He is still unable to lift right leg off of bed. He has noticed that his swelling in the right thigh has decreased. He is able to feel distal of the right hip and swelling area and has movement in that extremity aside from being able to lift off of bed. Review of Systems Review of Systems: All systems reviewed & are unremarkable except as noted in HPI and below Exam Const: Gene
[2021-02-23 08:00] VITALS: BP 109/71; PULSE 93; PULSE 96; RESP 18; TEMP 36.4; O2SAT 96
[2021-02-23 08:59] VITALS: PULSE 98
[2021-02-23] MEDS: methiMAzole 10 MG TAB PO (08:59)
[2021-02-23] MEDS: METOPROLOL TARTRATE 25 MG TABLET PO (08:59)
[2021-02-23 12:00] VITALS: BP 106/56; PULSE 84; RESP 20; TEMP 36.4; O2SAT 97
[2021-02-23 16:00] VITALS: BP 116/69; PULSE 84; PULSE 86; RESP 16; TEMP 36.6; O2SAT 98
[2021-02-23] MEDS: RIVAROXABAN 10 MG TABLET 20 MG PO (17:28)
[2021-02-23] MEDS: ROSUVASTATIN 10 MG TABLET PO (20:12)
[2021-02-24] VITALS: BP 115/70; PULSE 94; RESP 20; TEMP 36.7; O2SAT 97
[2021-02-24 07:14] LABS: Hematocrit 34.8 % (37.0-46.0); Hemoglobin 11.2 g/dL (12.4-15.3); Mean Corpuscular HGB Conc 32.2 g/dL (32.0-36.0); Mean Corpuscular Hemoglobin 31.3 pg (27.0-31.0); Mean Corpuscular Volume 97.2 fL (78.0-102.0); Mean Platelet Volume 10.2 fl (8.7-11.0); Platelet Count Result 198 K/mm3 (150-420); Red Blood Count 3.58 M/mm3 (4.70-6.10); Red Cell Distribution Width 14.6 % (11.6-14.4); White Blood Count 9.7 K/mm3 (4.8-10.8)
[2021-02-24 07:27] LABS: Anion Gap 8 mmol/L (8-16); Blood Urea Nitrogen 19 mg/dL (7-18); Calcium 8.4 mg/dL (8.5-10.1); Carbon Dioxide 28 mmol/L (21-32); Chloride 105 mmol/L (98-108); Estimated CRCL calculation 77 ml/min; Estimated Glomerular Filt Rate > 60; Glucose 105 mg/dL (70-99); Osmolality Calculated 294 mOsm/kg (285-295); Potassium 4.4 mmol/L (3.5-5.1); Sodium 141 mmol/L (136-145)
[2021-02-24 07:55] LABS: Vancomycin Trough 15.1 ug/mL (10.0-15.0)
[2021-02-24 07:56] LABS: NT Pro B Type Natriuretic Pept 452 pg/mL (0-450)
[2021-02-24 08:00] VITALS: BP 113/75; PULSE 113; RESP 16; TEMP 36.6; O2SAT 96
[2021-02-24 09:08] VITALS: PULSE 113
[2021-02-24] MEDS: METOPROLOL TARTRATE 25 MG TABLET PO (09:08)
[2021-02-24] MEDS: methiMAzole 10 MG TAB PO (09:08)
--- NOTE | 2021-02-24 09:31 | PM.DS ---
DS: Admitting Diagnosis Admitting Diagnosis Weakness DS: Discharge Diagnosis Discharge Diagnosis (1) CHF (congestive heart failure), NYHA class I: Code(s): I50.9 - Heart failure, unspecified Status: Acute Assessment and Plan: P-BNP 1225, lungs clear, non-pitting edema LE, monitor P-BNP, VSQ4H, monitor SpO2, supplemental O2 as needed, Monitor for fluid overload, heart healthy diet 02/22/2021 Will obtain P-BNP in the AM, No difficulty breathing, no CP, no LE swelling other than right thigh r/t Hip surgery 02/23/2021 BNP Improving 760, no issues with breathing or chest pain Discharge Improved compensated BNP [id number] (2) Weakness: Code(s): R53.1 - Weakness Status: Acute Assessment and Plan: PT and OT for the following: Relieve pain, Improve movement or ability, Prevent or recover from an injury, Prevent disability or surgery, Rehab after injury or surgery, Work on balance to prevent a slip or fall, Learn to use assistive devices like a walker or cane as needed. 02/22/2021 PT and or OT should be by today to evaluation this Pt. He does have difficulty standing and turning and sitting again from bed to wheelchair 02/23/2021 Continue with PT/OT, states his thigh swelling is improved, thigh does not look as swollen and tight as first 2 days. Discharge Will discharge to swing bed (3) Acute dehydration: Code(s): E86.0 - Dehydration Status: Acute Assessment and Plan: Pt was given total of 3 L IVF, Monitor I&O, monitor for fluid overload, Tolerating PO fluids well. 02/22/2021 Pt tolerating PO fluids well. 02/23/2021 Resolved Follow up with you Provider in 1-2 week. When do I need to call the doctor? Problem or pain when swallowing More throwing up or throwing up fluid that looks like blood or coffee grounds Pain in the chest or upper part of the belly Very bad heartburn that lasts for a long time Cough, hoarseness of voice, or bad breath Problem with breathing Weight loss or not wanting to eat (4) Hyperthyroidism: Code(s): E05.90 - Thyrotoxicosis, unspecified without thyrotoxic crisis or storm Status: Acute Assessment and Plan: Continue Methimazole (5) Status post right hip replacement: Code(s): Z96.641 - Presence of right artificial hip joint Status: Acute Assessment and Plan: Pt to work with PT/OT for the following: Relieve pain, Improve movement or ability, Prevent or recover from an injury, Prevent disability or surgery, Rehab after injury or surgery, Work on balance to prevent a slip or fall, Learn to use assistive devices like a walker or cane as needed 02/22/2021 Pt stated he was having the inability to feel the urge to urinate this morning, CT was ordered, prior to going for the CT of the lumbar spine he said he was starting to be able to feel the urge to urinate. Pt did not mention this yesterday. 02/23/2021 Pt is able to sense the urger to urinate and defecate this morning, still has difficulty raising his right leg off of the bed, Vancomycin likely started as Pt was borderline septic on arrival and given Vancomycin while watching labs, VS, and Pt status. (6) Primary hypertension: Code(s): I10 - Essential (primary) hypertension Status: Acute Assessment and Plan: BP stable, low tachycardia 100s, monitor VS and make adjustments to medications as needed 02/22/2021 VSS no need to adjust medications at this time. 02/23/2021 VSS continue to monitor, no medication changes at this time (7) Graves disease: Code(s): E05.00 - Thyrotoxicosis with diffuse goiter without thyrotoxic crisis or storm Status: Acute Assessment and Plan: Continue Methimazole (8) Afib: Qualifiers: Atrial fibrillation type: permanent Qualified Code(s): I48.21 - Permanent atrial fibrillation Code(s): I48.91 - Unspecified atrial fibrillation Status: Acute Assessment and Plan: Continue Xarelto D
--- NOTE | 2021-02-24 12:06 | PC.NURSE ---
Pt discharged to Swing bed at 1200. Condition is stable.
== END 2021-02-24 12:00 | disposition swing bed (61) | DRG 641 ==
LOC: CHSED 22:01 → CHS2ND 02-21 01:03
PROVIDERS: Nurse Practitioner; Nurse Practitioner Family; Admitting Provider Emergency Medicine; Emergency Provider Emergency Medicine; PCP Family Medicine; Visit Provider Emergency Medicine
DX: E86.0 Dehydration (principal); I48.20 Chronic atrial fibrillation, unspecified; I50.9 Heart failure, unspecified; R53.1 Weakness; E05.90 Thyrotoxicosis, unspecified without thyrotoxic crisis or storm; E66.9 Obesity, unspecified; M47.816 Spondylosis without myelopathy or radiculopathy, lumbar region; G47.33 Obstructive sleep apnea (adult) (pediatric); Z96.653 Presence of artificial knee joint, bilateral; Z96.641 Presence of right artificial hip joint; Z47.1 Aftercare following joint replacement surgery
CPT/HCPCS: 36415; 70450; 71275; 72131; 73502; 80048; 80053; 80202; 81003; 83605; 83880; 84443; 84484; 85025; 85027; 85610; 85730; 86140; 87040; 87426; 93005; 96361; 96365; 96366; 96367; 97110; 97161; 97165; 97530; 97535; 99285; A9270; C9803; G0378; J0696; J3370; J7030; Q9967; U0003; U0005

== ENCOUNTER 2021-02-24 12:01 | Inpatient (IN) | payer MEDICARE, BC, SELFPAY ==
--- NOTE | ~2021-02-24 | CT_ITS ---
EXAMINATION: CT hip RT wo con DATE: 03/02/2021 10:37 INDICATION: Right leg edema and drainage from incision site of a right total hip arthroplasty. TECHNIQUE: High resolution computed tomography (CT) of the right hip was performed without intravenou s contrast. Additional sagittal and coronal reconstructions were performed. Automated exposure contro l and iterative reconstruction technique were employed. The dose-length product was 1079.44 mGy-cm. COMPARISON: Radiograph dated 02/21/2021 FINDINGS: Again seen is a noncemented right total hip arthroplasty which remains well seated in near-anatomic a lignment. No fracture. No periprosthetic lucency to suggest loosening or infection. No appreciable ri ght hip joint effusion although assessment in the immediate vicinity of the arthroplasty components i s limited by streak artifact. There is prominent subcutaneous edema at the lateral right pelvis, hip and proximal thigh. No loculated fluid collections to suggest hematoma or abscess. There are few dive rticula along the sigmoid colon. Visualized portion of the appendix is normal. No pathologically enla rged right pelvic or inguinal lymphadenopathy. Mild fatty atrophy of the right gluteal musculature wi th small right gluteus medius intramuscular lipoma. IMPRESSION: 1. Expected appearance of a right total hip arthroplasty without acute osseous abnormality or evident joint effusion, abscess or hematoma. Reviewed, dictated and finalized at location A.
[2021-02-24 13:28] VITALS: BP 120/85; PULSE 100; RESP 16; TEMP 37.1; O2SAT 97
--- NOTE | 2021-02-24 13:40 | PC.NURSE ---
Pt discharged from inpatient status and admitted to Rehab status. Condition is stable. OT & PT have evaluated pt.
[2021-02-24 13:49] VITALS: BMI 50.8
--- NOTE | 2021-02-24 14:09 | WPDREHABHP2 ---
HPI Date/Time 02/24/21 14:09 Narrative Jose Gates is a 81 year old male who is admitted under Observation for MAY and weakness after Right Hip replacement . Pt explains that when he got home he walked through the garage and became weak as he entered his home. He was unable to get up and required the assistance of some members of the [employer] to get him up and into bed. Pt states that he had developed a MAY, felt weak/tired. PT/OT was consulted. Patient admitted in swing bed for rehabilitation due to decreased balance decreased mobility in severe limited function endurant and/or mobility. The patient denies SOB, CP, palpitation, extremity numbness, lightheadedness, dizziness, constipation, diarrhea, chills, or fever. The etiologic diagnosis is [S/P RIGHT HIP REPLACEMENT] I saw this patient [id number] on [02/24/2021] The patient is a [fc] GOALS: Our therapists will evaluate the patient and establish the goals. However, upon pre-admission screening, the expected goals were to be [INDEPENDENT] with self-care, [INDEPENDENT] with transfers, and [INDEPENDENT] with functional mobility so that the patient can return home. ESTIMATED LENGTH OF STAY: [10-14 days] POTENTIAL BARRIERS TO DISCHARGE: [Patient lives alone.] [Family needs training.] [Severity of condition.] [Architectural barriers.] ACTIVE CO-MORBIDITIES PRESENT ON ADMISSION: Active co-morbidities include []. The above co-morbidities impact the patient's function and/or functional outcome by [] Covid The patient had a negative COVID test on []. Review of Systems Review of Systems A 14 organ system Review of Systems was performed and pertinent positives included in the HPI, otherwise remaining ROS is negative. [facility] Past Medical History Medical History (Updated 02/21/21 @ 13:41 by FREDDIE Ross) Afib Cancer CHF (congestive heart failure), NYHA class I Heart disease Hyperthyroidism Obesity Obstructive sleep apnea SOB (shortness of breath) Thyroid disease Surgical History Surgical History History of bilateral knee replacement Status post right hip replacement Family History Family History Mother Diabetes mellitus Father Family history of malignant neoplasm Family history of chronic obstructive pulmonary disease Social History Social History Smoking packs per day: 1 Smoking cigarettes per day: 20.0 Years smoked: 40 Smoking pack-years: 40.00 Smoking status: Former smoker Tobacco type: cigarettes Second hand tobacco smoke exposure: No Alcohol intake: current Drinks per week: 2 Substance use: never Substance use type: does not use Gender identity (if verbalized by the patient): Male Sexual Orientation (if Verbalized by the Patient): Straight or Heterosexual Spiritual care concerns: No Meds Home Medications and Allergies Home Medications Medication Instructions Recorded Confirmed Type cholecalciferol (vitamin D3) 25 1,000 unit PO DAILY 07/30/19 02/24/21 History mcg (1,000 unit) capsule furosemide 40 mg tablet 40 mg PO DAILY tablet 07/30/19 02/24/21 History metoprolol tartrate 25 mg tablet 25 mg PO DAILY 07/30/19 02/24/21 History rosuvastatin 10 mg tablet 10 mg PO DAILY 07/30/19 02/24/21 History zinc amino acid chelate 50 mg 50 mg PO DAILY tablet 07/30/19 02/24/21 History tablet ascorbate calcium (vitamin C) 500 500 mg PO BID 10/09/19 02/24/21 History mg tablet rivaroxaban 20 mg tablet 20 mg PO DAILY 10/09/19 02/24/21 History methimazole 10 mg tablet 10 mg PO DAILY 90 Days #90 tablet 10/16/20 02/24/21 Rx mecobalamin (vitamin B12) 1,000 1,000 mcg PO DAILY 12/02/20 02/24/21 History mcg chewable tablet aspirin 81 mg tablet,delayed 81 mg PO DAILY 01/20/21 02/24/21 History release Allergies Allergy/AdvReac Type Warreni
[2021-02-24 16:00] VITALS: BP 121/70; PULSE 96; RESP 18; TEMP 36.3; O2SAT 97
[2021-02-24] MEDS: ACETAMINOPHEN 325 MG TABLET 650 MG PO (16:23)
[2021-02-24] MEDS: ASCORBIC ACID 500 MG TABLET PO (16:25)
[2021-02-24] MEDS: RIVAROXABAN 10 MG TABLET 20 MG PO (16:25)
[2021-02-24] MEDS: DOCUSATE SODIUM 100 MG CAPSULE PO (20:05)
[2021-02-24] MEDS: traZODone HCL 50 MG TABLET PO (20:58)
[2021-02-25] VITALS: BP 112/62; PULSE 98; RESP 18; TEMP 36.6; O2SAT 95
[2021-02-25 07:35] VITALS: BP 157/75; PULSE 97; RESP 18; TEMP 36.6; O2SAT 98
[2021-02-25] MEDS: methiMAzole 10 MG TAB PO (09:27)
[2021-02-25] MEDS: ASCORBIC ACID 500 MG TABLET PO ×2 (09:27→16:31)
[2021-02-25] MEDS: ASPIRIN 81 MG ENTERIC TABLET PO (09:27)
[2021-02-25] MEDS: CYANOCOBALAMIN 1,000 MCG TABLET 1000 MCG PO (09:27)
[2021-02-25 09:28] VITALS: PULSE 97
[2021-02-25] MEDS: METOPROLOL TARTRATE 25 MG TABLET PO (09:28)
[2021-02-25] MEDS: FUROSEMIDE 40 MG TABLET PO (09:28)
[2021-02-25] MEDS: DOCUSATE SODIUM 100 MG CAPSULE PO ×2 (09:28→21:44)
[2021-02-25] MEDS: ROSUVASTATIN 10 MG TABLET PO (09:28)
[2021-02-25] MEDS: CHOLECALCIFEROL 1,000 UNITS TABLET 1000 UNITS PO (09:28)
[2021-02-25] MEDS: HYDROcodone/acetaminophen (*CRX) 7.5-325 MG TABLET 1 TAB PO (10:55)
--- NOTE | 2021-02-25 11:58 | PCOTNOTE ---
On 02/25/21, the student, [ Katy Hall], provided care and completed [facility] documentation on this patient. I have reviewed the student's documentation and agree with the findings.
[2021-02-25 16:00] VITALS: BP 110/75; PULSE 91; RESP 18; TEMP 36.7; O2SAT 99
[2021-02-25] MEDS: traMADol HCL (*CRX) 50 MG TABLET PO (16:31)
[2021-02-25] MEDS: RIVAROXABAN 10 MG TABLET 20 MG PO (16:31)
[2021-02-25] MEDS: traZODone HCL 50 MG TABLET PO (21:44)
[2021-02-26] VITALS: BP 109/54; PULSE 65; RESP 16; TEMP 36.5; O2SAT 99
--- NOTE | 2021-02-26 07:11 | PC.NURSE ---
Up tp BR using gait belt walker.Pt voided & expelled formed brown BM in toilet then up into chair.
[2021-02-26 08:00] VITALS: BP 104/70; PULSE 102; RESP 18; TEMP 36.6; O2SAT 97
[2021-02-26 08:57] VITALS: PULSE 84
[2021-02-26] MEDS: FUROSEMIDE 40 MG TABLET PO (08:57)
[2021-02-26] MEDS: ASCORBIC ACID 500 MG TABLET PO ×2 (08:57→16:30)
[2021-02-26] MEDS: ASPIRIN 81 MG ENTERIC TABLET PO (08:57)
[2021-02-26] MEDS: CYANOCOBALAMIN 1,000 MCG TABLET 1000 MCG PO (08:57)
[2021-02-26] MEDS: methiMAzole 10 MG TAB PO (08:57)
[2021-02-26] MEDS: DOCUSATE SODIUM 100 MG CAPSULE PO ×2 (08:57→20:09)
[2021-02-26] MEDS: METOPROLOL TARTRATE 25 MG TABLET PO (08:57)
[2021-02-26] MEDS: CHOLECALCIFEROL 1,000 UNITS TABLET 1000 UNITS PO (08:57)
[2021-02-26] MEDS: ROSUVASTATIN 10 MG TABLET PO (08:58)
[2021-02-26] MEDS: HYDROcodone/acetaminophen (*CRX) 7.5-325 MG TABLET 1 TAB PO (09:02)
--- NOTE | 2021-02-26 09:34 | PC.NURSE ---
0745 encouraged to keep up on pillow. r foot is swollen up into mid calf. she claims the calf is not as tight as yesterday and swelling has decreased some. still painful to touch. marisel parada 0845 [facility] called for transfer and they are unable to transport d/t no air in rig. [facility] called. marisel parada 09Tush[facility] here and pt transfered over to cot and care turned over. marisel parada
[2021-02-26 16:00] VITALS: BP 112/78; PULSE 66; RESP 16; TEMP 36.6; O2SAT 97
[2021-02-26] MEDS: RIVAROXABAN 10 MG TABLET 20 MG PO (16:30)
[2021-02-26] MEDS: traMADol HCL (*CRX) 50 MG TABLET PO (21:02)
[2021-02-26] MEDS: traZODone HCL 50 MG TABLET PO ×2 (21:02→21:15)
[2021-02-26 23:47] VITALS: BP 104/72; PULSE 85; RESP 18; TEMP 36.2; O2SAT 97
[2021-02-27 08:00] VITALS: PULSE 80; RESP 16; TEMP 36.6; O2SAT 97
[2021-02-27] MEDS: DOCUSATE SODIUM 100 MG CAPSULE PO ×2 (08:15→21:16)
[2021-02-27] MEDS: FUROSEMIDE 40 MG TABLET PO (08:15)
[2021-02-27] MEDS: HYDROcodone/acetaminophen (*CRX) 7.5-325 MG TABLET 1 TAB PO ×2 (08:15→21:16)
[2021-02-27] MEDS: methiMAzole 10 MG TAB PO (08:15)
[2021-02-27] MEDS: ASCORBIC ACID 500 MG TABLET PO ×2 (08:15→17:10)
[2021-02-27] MEDS: ROSUVASTATIN 10 MG TABLET PO (08:15)
[2021-02-27] MEDS: CHOLECALCIFEROL 1,000 UNITS TABLET 1000 UNITS PO (08:15)
[2021-02-27] MEDS: CYANOCOBALAMIN 1,000 MCG TABLET 1000 MCG PO (08:15)
[2021-02-27] MEDS: ASPIRIN 81 MG ENTERIC TABLET PO (08:15)
[2021-02-27 08:17] VITALS: PULSE 80
[2021-02-27] MEDS: METOPROLOL TARTRATE 25 MG TABLET PO (08:17)
[2021-02-27] MEDS: traMADol HCL (*CRX) 50 MG TABLET PO (12:38)
[2021-02-27 16:00] VITALS: BP 111/84; PULSE 90; RESP 18; TEMP 36.6; O2SAT 97
[2021-02-27] MEDS: RIVAROXABAN 10 MG TABLET 20 MG PO (17:10)
[2021-02-27 20:00] VITALS: PULSE 90; RESP 20; TEMP 36.1; O2SAT 98
[2021-02-27] MEDS: traZODone HCL 50 MG TABLET PO (21:17)
[2021-02-27] MEDS: guaiFENesin 12 HR 600 MG TABCR 1200 MG PO (21:17)
--- NOTE | 2021-02-27 21:42 | PC.NURSE ---
patient was up to recliner beginning of shift, assessment normal except right hip swelling and decreased range of motion s/p right hip surgery about a week ago, hydrocodone given for pain and discomfort, patient stand by assist from recliner to bed. tolerated it well, used overhead trapeze to position himself.
[2021-02-28 07:49] VITALS: BP 119/59; PULSE 90; RESP 18; TEMP 36; O2SAT 97
[2021-02-28] MEDS: CYANOCOBALAMIN 1,000 MCG TABLET 1000 MCG PO (08:35)
[2021-02-28] MEDS: ASCORBIC ACID 500 MG TABLET PO ×2 (08:35→16:38)
[2021-02-28 08:36] VITALS: PULSE 74
[2021-02-28] MEDS: guaiFENesin 12 HR 600 MG TABCR 1200 MG PO ×2 (08:36→20:00)
[2021-02-28] MEDS: ASPIRIN 81 MG ENTERIC TABLET PO (08:36)
[2021-02-28] MEDS: CHOLECALCIFEROL 1,000 UNITS TABLET 1000 UNITS PO (08:36)
[2021-02-28] MEDS: DOCUSATE SODIUM 100 MG CAPSULE PO ×2 (08:36→20:03)
[2021-02-28] MEDS: METOPROLOL TARTRATE 25 MG TABLET PO (08:36)
[2021-02-28] MEDS: FUROSEMIDE 40 MG TABLET PO (08:37)
[2021-02-28] MEDS: ROSUVASTATIN 10 MG TABLET PO (08:37)
[2021-02-28] MEDS: methiMAzole 10 MG TAB PO (13:30)
--- NOTE | 2021-02-28 14:13 | PC.NURSE ---
Resting in bed, lefs elevated, denies pain, personal items in reach of patient
--- NOTE | 2021-02-28 15:07 | PC.NURSE ---
Resting in bed, denies needs
[2021-02-28 16:00] VITALS: BP 96/58; PULSE 96; RESP 18; TEMP 36.4; O2SAT 97
[2021-02-28] MEDS: RIVAROXABAN 10 MG TABLET 20 MG PO (16:38)
[2021-02-28] MEDS: ACETAMINOPHEN 325 MG TABLET 650 MG PO (16:42)
--- NOTE | 2021-02-28 18:07 | PC.NURSE ---
Patient up in chair for dinner. Patient c/o r upper hip pain, Tylenol given per MD prn order. Amb with walker and SBA to/from bathroom. Call light within reach.
[2021-02-28] MEDS: HYDROcodone/acetaminophen (*CRX) 7.5-325 MG TABLET 1 TAB PO (20:03)
[2021-02-28] MEDS: traZODone HCL 50 MG TABLET PO (20:03)
[2021-02-28 21:25] VITALS: BP 123/85; PULSE 73; RESP 20; TEMP 35.9; O2SAT 98
--- NOTE | 2021-03-01 00:08 | PC.NURSE ---
patient sleeping well with home cpap machine, patient ambulated in room with walker prior to bed, tolerated well, pain meds given prior to walking. right hip incision, well approximated, dressing cdi.
[2021-03-01 07:50] VITALS: BP 110/66; PULSE 83; RESP 18; TEMP 36; O2SAT 96
--- NOTE | 2021-03-01 09:35 | PC.NURSE ---
Right hip incision draining small to moderate amount of dark serosanguinous drainage. Transparent dressing removed, area cleansed with bath wipe. ABD applied and secured with medipore tape.
[2021-03-01] MEDS: HYDROcodone/acetaminophen (*CRX) 7.5-325 MG TABLET 1 TAB PO (09:40)
[2021-03-01 09:41] VITALS: PULSE 83
[2021-03-01] MEDS: ASCORBIC ACID 500 MG TABLET PO ×2 (09:41→17:11)
[2021-03-01] MEDS: guaiFENesin 12 HR 600 MG TABCR 1200 MG PO ×2 (09:41→21:24)
[2021-03-01] MEDS: ASPIRIN 81 MG ENTERIC TABLET PO (09:41)
[2021-03-01] MEDS: METOPROLOL TARTRATE 25 MG TABLET PO (09:41)
[2021-03-01] MEDS: ROSUVASTATIN 10 MG TABLET PO (09:41)
[2021-03-01] MEDS: FUROSEMIDE 40 MG TABLET PO ×2 (09:41→11:21)
[2021-03-01] MEDS: CHOLECALCIFEROL 1,000 UNITS TABLET 1000 UNITS PO (09:41)
[2021-03-01] MEDS: CYANOCOBALAMIN 1,000 MCG TABLET 1000 MCG PO (09:41)
[2021-03-01] MEDS: methiMAzole 10 MG TAB PO (09:43)
[2021-03-01 16:30] VITALS: BP 116/61; PULSE 82; RESP 18; TEMP 36.1; O2SAT 96
[2021-03-01] MEDS: RIVAROXABAN 10 MG TABLET 20 MG PO (17:11)
[2021-03-01] MEDS: traMADol HCL (*CRX) 50 MG TABLET PO (21:23)
[2021-03-01] MEDS: DOCUSATE SODIUM 100 MG CAPSULE PO (21:23)
[2021-03-01] MEDS: traZODone HCL 50 MG TABLET PO (21:23)
[2021-03-02] VITALS: BP 106/75; PULSE 64; RESP 18; TEMP 36.6; O2SAT 96
[2021-03-02 06:15] LABS: Hematocrit 33.9 % (37.0-46.0); Hemoglobin 10.5 g/dL (12.4-15.3); Mean Corpuscular Hemoglobin 30.5 pg (27.0-31.0); Mean Corpuscular Volume 98.5 fL (78.0-102.0); Mean Platelet Volume 9.9 fl (8.7-11.0); Platelet Count Result 290 K/mm3 (150-420); Red Blood Count 3.44 M/mm3 (4.70-6.10); White Blood Count 7.3 K/mm3 (4.8-10.8)
[2021-03-02 06:32] LABS: Lactic Acid Reflex 1.3 mmol/L (0.4-2.0)
[2021-03-02 08:00] VITALS: BP 122/56; RESP 20; TEMP 36.4; O2SAT 98
[2021-03-02] MEDS: methiMAzole 10 MG TAB PO (08:31)
[2021-03-02] MEDS: guaiFENesin 12 HR 600 MG TABCR 1200 MG PO ×2 (08:31→20:35)
[2021-03-02] MEDS: CYANOCOBALAMIN 1,000 MCG TABLET 1000 MCG PO (08:32)
[2021-03-02] MEDS: CHOLECALCIFEROL 1,000 UNITS TABLET 1000 UNITS PO (08:32)
[2021-03-02] MEDS: ASCORBIC ACID 500 MG TABLET PO ×2 (08:33→17:30)
[2021-03-02] MEDS: ASPIRIN 81 MG ENTERIC TABLET PO (08:33)
[2021-03-02] MEDS: FUROSEMIDE 40 MG TABLET 80 MG PO (08:33)
[2021-03-02] MEDS: DOCUSATE SODIUM 100 MG CAPSULE PO ×2 (08:33→20:35)
[2021-03-02] MEDS: METOPROLOL TARTRATE 25 MG TABLET PO (08:34)
[2021-03-02] MEDS: ROSUVASTATIN 10 MG TABLET PO (09:22)
--- NOTE | 2021-03-02 10:49 | PC.NURSE ---
Patient back from CT scan right hip.awaiting report.
--- NOTE | 2021-03-02 11:08 | PCOTNOTE ---
On 03/02/21, the student, [ Katy Hall], provided care and completed [facility] documentation on this patient. I have reviewed the student's documentation and agree with the findings.MS
--- NOTE | 2021-03-02 11:17 | PC.NURSE ---
CT scan Neg.
[2021-03-02 16:00] VITALS: BP 128/69; PULSE 75; RESP 20; TEMP 36.3; O2SAT 96
[2021-03-02] MEDS: RIVAROXABAN 10 MG TABLET 20 MG PO (17:30)
[2021-03-02] MEDS: traMADol HCL (*CRX) 50 MG TABLET PO (20:39)
[2021-03-02] MEDS: traZODone HCL 50 MG TABLET PO (20:40)
--- NOTE | 2021-03-02 21:00 | PC.NURSE ---
Dressing was changed to right hip d/t large amount of drainage, serosanguineous. No redness present to surrounding tissue. Incision closed. Right hip and right thigh edematous, taut. C/o pain 3/10. PRN pain medication given.
[2021-03-03] VITALS: BP 103/65; PULSE 85; RESP 18; TEMP 36.6; O2SAT 97
[2021-03-03 07:33] VITALS: BP 123/61; RESP 20; TEMP 36.7; O2SAT 95
--- NOTE | 2021-03-03 07:44 | PM.IMPN ---
Progress Note: A&P Assessment and Plan (1) Weakness: Code(s): R53.1 - Weakness <FREDDIE Ross - Last Filed: 03/03/21 12:32> Status: Acute <Silas LeonelaFREDDIE Ferguson - Last Filed: 03/03/21 12:32> Assessment and Plan: ? Exhibit tolerance during physical activity as evidenced by a normal fluctuation of vital signs during physical activity. ? Patient will be ability to perform required activities of daily living. ? Provide appropriate nutrition for healing and strength. ? Use appropriate to prevent falls. ? Continue physical therapy/occupational therapy.. 03/03/2021 Pt has progressed with PT/OT, he has better movement of the right leg, does not require much assistance <FREDDIE Ross - Last Filed: 03/03/21 12:32> (2) CHF (congestive heart failure), NYHA class I: Code(s): I50.9 - Heart failure, unspecified <FREDDIE Ross - Last Filed: 03/03/21 12:32> Status: Acute <REYNA RossC - Last Filed: 03/03/21 12:32> Assessment and Plan: Compensated [id number] Continue Lasix 40 mg daily Weight daily 03/03/2021 Weight today 142 kg on 02/25/2021 weight was 145.1kg, I recall there was inaccurate weight early during his admission. No difficulty with breathing, LE fluid is improved <FREDDIE Ross - Last Filed: 03/03/21 12:32> (3) Status post right hip replacement: Code(s): Z96.641 - Presence of right artificial hip joint <FREDDIE Ross - Last Filed: 03/03/21 12:32> Status: Acute <FREDDIE Ross - Last Filed: 03/03/21 12:32> Assessment and Plan: Completed at [facility] by Dr. Van(orthopedic surgeon) on approximately02/18 Controlled pain Site with dressing according to patient he is to keep dressing intact and will follow up on his own no special care needed 03/03/2021 Dressing intact without visible drainage. Fluid to the right thigh is improved per the bedside RN in comparison to last 2 days. <Silas BradyFREDDIE alvarez - Last Filed: 03/03/21 12:32> (4) Primary hypertension: Code(s): I10 - Essential (primary) hypertension <Silas BradyFREDDIE alvarez - Last Filed: 03/03/21 12:32> Status: Acute <Silas BradyFREDDIE alvarez - Last Filed: 03/03/21 12:32> Assessment and Plan: Stable Continue metoprolol 25 mg daily Vital signs as ordered Will adjust medication as needed 03/03/2021 Contiue with current regimen as VS are stable. <Silas Hart FREDDIE Mg - Last Filed: 03/03/21 12:32> (5) Hyperthyroidism: Code(s): E05.90 - Thyrotoxicosis, unspecified without thyrotoxic crisis or storm <Silas Hart FREDDIE Mg - Last Filed: 03/03/21 12:32> Status: Acute <Silas BradyFREDDIE alvarez - Last Filed: 03/03/21 12:32> Assessment and Plan: Continue Methimazole <Silas BradyFREDDIE alvarez - Last Filed: 03/03/21 12:32> (6) Afib: Qualifiers: Atrial fibrillation type: permanent Qualified Code(s): I48.21 - Permanent atrial fibrillation <Silas BradyFREDDIE alvarez - Last Filed: 03/03/21 12:32> Code(s): I48.91 - Unspecified atrial fibrillation <Silas Hart FREDDIE Mg - Last Filed: 03/03/21 12:32> Status: Acute <Silas BradyFREDDIE alvarez - Last Filed: 03/03/21 12:32> Assessment and Plan: Controlled Continue metoprolol and Xarelto <Silas Hart FREDDIE Mg - Last Filed: 03/03/21 12:32> Subjective Date/time seen: 03/03/21 07:44 Jose states he is feeling well. He states he has been doing better with PT/OT. He states he is getting better with lifting his right leg. He still has some burning in the right leg at times but much better than a couple days ago when it was swollen and draining from the surgical site. Serosanguineous fluid. I saw him working with PT in the PT room going up the steps and he did quite well without assistance. He states and demonstrates that he is able to move his
[2021-03-03] MEDS: guaiFENesin 12 HR 600 MG TABCR 1200 MG PO ×2 (08:25→21:23)
[2021-03-03] MEDS: FUROSEMIDE 40 MG TABLET 80 MG PO (08:27)
[2021-03-03 08:28] VITALS: PULSE 80
[2021-03-03] MEDS: methiMAzole 10 MG TAB PO (08:28)
[2021-03-03] MEDS: ASPIRIN 81 MG ENTERIC TABLET PO (08:28)
[2021-03-03] MEDS: DOCUSATE SODIUM 100 MG CAPSULE PO ×2 (08:28→21:23)
[2021-03-03] MEDS: METOPROLOL TARTRATE 25 MG TABLET PO (08:28)
[2021-03-03] MEDS: ASCORBIC ACID 500 MG TABLET PO ×2 (08:29→16:52)
[2021-03-03] MEDS: CYANOCOBALAMIN 1,000 MCG TABLET 1000 MCG PO (08:29)
[2021-03-03] MEDS: ROSUVASTATIN 10 MG TABLET PO (08:29)
[2021-03-03] MEDS: CHOLECALCIFEROL 1,000 UNITS TABLET 1000 UNITS PO (08:29)
--- NOTE | 2021-03-03 08:46 | PC.NURSE ---
Berny assessed up in chair walker utilized, with standby assist. Urinal in reach, emptied 200cc at this time.Call light placed in reach. No complaints of pain or problems. Right upper thigh incisional area covered with ABD pad, dry and clean.
--- NOTE | 2021-03-03 10:49 | PCOTNOTE ---
On 03/03/21, the student, [Katy Hall ], provided care and completed [facility] documentation on this patient. I have reviewed the student's documentation and agree with the findings.
[2021-03-03 16:00] VITALS: BP 110/85; PULSE 90; RESP 20; TEMP 36.2; O2SAT 95
[2021-03-03] MEDS: RIVAROXABAN 10 MG TABLET 20 MG PO (16:52)
[2021-03-03] MEDS: HYDROcodone/acetaminophen (*CRX) 7.5-325 MG TABLET 1 TAB PO (18:11)
[2021-03-03] MEDS: traZODone HCL 50 MG TABLET PO (21:23)
[2021-03-04] VITALS: BP 92/62; PULSE 89; RESP 18; TEMP 36.6; O2SAT 93
[2021-03-04 08:00] VITALS: BP 126/70; RESP 20; TEMP 36.8; O2SAT 99
[2021-03-04 08:22] VITALS: PULSE 104
[2021-03-04] MEDS: guaiFENesin 12 HR 600 MG TABCR 1200 MG PO ×2 (08:22→20:56)
[2021-03-04] MEDS: ASPIRIN 81 MG ENTERIC TABLET PO (08:22)
[2021-03-04] MEDS: METOPROLOL TARTRATE 25 MG TABLET PO (08:22)
[2021-03-04] MEDS: ASCORBIC ACID 500 MG TABLET PO ×2 (08:22→17:58)
[2021-03-04] MEDS: methiMAzole 10 MG TAB PO (08:22)
[2021-03-04] MEDS: HYDROcodone/acetaminophen (*CRX) 7.5-325 MG TABLET 1 TAB PO ×2 (08:23→18:16)
[2021-03-04] MEDS: CYANOCOBALAMIN 1,000 MCG TABLET 1000 MCG PO (08:23)
[2021-03-04] MEDS: FUROSEMIDE 40 MG TABLET 80 MG PO (08:23)
[2021-03-04] MEDS: CHOLECALCIFEROL 1,000 UNITS TABLET 1000 UNITS PO (08:26)
[2021-03-04] MEDS: DOCUSATE SODIUM 100 MG CAPSULE PO ×2 (08:26→20:56)
[2021-03-04] MEDS: ROSUVASTATIN 10 MG TABLET PO (08:27)
--- NOTE | 2021-03-04 10:09 | PCOTNOTE ---
On 03/04/21, the student, [ Katy Hall ], provided care and completed [facility] documentation on this patient. I have reviewed the student's documentation and agree with the findings.MS
[2021-03-04 16:00] VITALS: BP 115/66; PULSE 78; RESP 20; TEMP 36.6; O2SAT 97
[2021-03-04] MEDS: RIVAROXABAN 10 MG TABLET 20 MG PO (17:58)
[2021-03-04] MEDS: traZODone HCL 50 MG TABLET PO (21:06)
[2021-03-05] VITALS: BP 93/60; PULSE 80; RESP 18; TEMP 35.9; O2SAT 100
--- NOTE | 2021-03-05 07:35 | PC.NURSE ---
Berny standby assist up to bathroom with walker/ then to bedside chair. Tolerated good no complaints,no pain.Call light in reach.
[2021-03-05 08:00] VITALS: BP 110/68; RESP 20; TEMP 36.3; O2SAT 98
[2021-03-05] MEDS: CHOLECALCIFEROL 1,000 UNITS TABLET 1000 UNITS PO (08:05)
[2021-03-05] MEDS: methiMAzole 10 MG TAB PO (08:05)
[2021-03-05] MEDS: ASPIRIN 81 MG ENTERIC TABLET PO (08:05)
[2021-03-05] MEDS: ASCORBIC ACID 500 MG TABLET PO ×2 (08:05→17:00)
[2021-03-05] MEDS: CYANOCOBALAMIN 1,000 MCG TABLET 1000 MCG PO (08:06)
[2021-03-05] MEDS: DOCUSATE SODIUM 100 MG CAPSULE PO ×2 (08:06→20:13)
[2021-03-05] MEDS: FUROSEMIDE 40 MG TABLET 80 MG PO (08:06)
[2021-03-05 08:07] VITALS: PULSE 98
[2021-03-05] MEDS: METOPROLOL TARTRATE 25 MG TABLET PO (08:07)
[2021-03-05] MEDS: guaiFENesin 12 HR 600 MG TABCR 1200 MG PO ×2 (08:07→20:14)
[2021-03-05] MEDS: ROSUVASTATIN 10 MG TABLET PO (08:59)
[2021-03-05 12:30] VITALS: BP 114/74; RESP 20; TEMP 36.9; O2SAT 96
[2021-03-05 15:46] VITALS: BP 101/69; PULSE 90; RESP 20; TEMP 36.7; O2SAT 95
[2021-03-05] MEDS: RIVAROXABAN 10 MG TABLET 20 MG PO (17:00)
[2021-03-05] MEDS: HYDROcodone/acetaminophen (*CRX) 7.5-325 MG TABLET 1 TAB PO (20:13)
[2021-03-05] MEDS: traZODone HCL 50 MG TABLET PO (20:14)
[2021-03-06] VITALS: BP 113/65; PULSE 76; RESP 18; TEMP 36.6; O2SAT 96
--- NOTE | 2021-03-06 05:57 | PC.NURSE ---
Voided in bathroom and up in chair. Tolerated activity well.
--- NOTE | 2021-03-06 07:15 | PM.DS ---
DS: Admitting Diagnosis Admitting Diagnosis MAY and Weakness s/p Right Hip replacement, Falls DS: Discharge Diagnosis Discharge Diagnosis (1) Weakness: Code(s): R53.1 - Weakness Status: Acute Assessment and Plan: ? Exhibit tolerance during physical activity as evidenced by a normal fluctuation of vital signs during physical activity. ? Patient will be ability to perform required activities of daily living. ? Provide appropriate nutrition for healing and strength. ? Use appropriate to prevent falls. ? Continue physical therapy/occupational therapy.. 03/03/2021 Pt has progressed with PT/OT, he has better movement of the right leg, does not require much assistance 03/06/2021 Pt has been doing well with mobility and PT believes Pt is safe to return home with home health PT (2) CHF (congestive heart failure), NYHA class I: Code(s): I50.9 - Heart failure, unspecified Status: Acute Assessment and Plan: Compensated [id number] Continue Lasix 40 mg daily Weight daily 03/03/2021 Weight today 142 kg on 02/25/2021 weight was 145.1kg, I recall there was inaccurate weight early during his admission. No difficulty with breathing, LE fluid is improved 03/06/2021 Weight 140.8, stable condition (3) Status post right hip replacement: Code(s): Z96.641 - Presence of right artificial hip joint Status: Acute Assessment and Plan: Completed at [facility] by Dr. Van(orthopedic surgeon) on approximately02/18 Controlled pain Site with dressing according to patient he is to keep dressing intact and will follow up on his own no special care needed 03/03/2021 Dressing intact without visible drainage. Fluid to the right thigh is improved per the bedside RN in comparison to last 2 days. 03/06/2021 Pain is controlled, no drainage of the incision site, no signs of infection (4) Primary hypertension: Code(s): I10 - Essential (primary) hypertension Status: Acute Assessment and Plan: Stable Continue metoprolol 25 mg daily Vital signs as ordered Will adjust medication as needed 03/03/2021 Contiue with current regimen as VS are stable. 03/06/2021 VSS, no changes to medications, follow up with PCP (5) Hyperthyroidism: Code(s): E05.90 - Thyrotoxicosis, unspecified without thyrotoxic crisis or storm Status: Acute Assessment and Plan: Continue Methimazole (6) Afib: Qualifiers: Atrial fibrillation type: permanent Qualified Code(s): I48.21 - Permanent atrial fibrillation Code(s): I48.91 - Unspecified atrial fibrillation Status: Acute Assessment and Plan: Controlled Continue metoprolol and Xarelto DS: Summary Hospital Course Hospital Course: Pt advanced with PT/OT and is now safe to return home. He did have some swelling and drainage of the left thigh/surgical site which is improving. No more drainage and swelling is steadily improving. Time Spent with Patient Time attestation: Total time spent providing and/or coordinating discharge services: < 30 Minutes Exam Const: General: cooperative, comfortable, no acute distress, alert, awake and Physically active Nutritional Appearance: obese morbidly obese Resp: Effort & Inspection: normal respiratory effort Auscultation: clear to auscultation bilaterally Cardio: Rate: regular rate Heart sounds: S1 normal heart sound present and S2 normal heart sound present GI: GI Palp: Yes Soft to palpation and No Tenderness to palpation present (GI) Auscultation: normal bowel sounds Skin: General skin exam: normal color, dry skin and other (surgical site looks good, healing well, no drainage) Neuro: General: oriented to person, oriented to place, oriented to time and CN's II-XI intact bilaterally (grossly intact) Extrem: General: no pedal edema Right lower extremity: hip/thigh Details: swelling (improved) Psych: Appearance: grossly normal Mental Status: mental status grossly normal Speech and m
[2021-03-06 08:00] VITALS: BP 119/80; RESP 20; TEMP 36.4; O2SAT 98
[2021-03-06] MEDS: FUROSEMIDE 40 MG TABLET 80 MG PO (08:50)
[2021-03-06] MEDS: guaiFENesin 12 HR 600 MG TABCR 1200 MG PO (08:50)
[2021-03-06 08:51] VITALS: PULSE 80
[2021-03-06] MEDS: ASPIRIN 81 MG ENTERIC TABLET PO (08:51)
[2021-03-06] MEDS: ASCORBIC ACID 500 MG TABLET PO (08:51)
[2021-03-06] MEDS: CYANOCOBALAMIN 1,000 MCG TABLET 1000 MCG PO (08:51)
[2021-03-06] MEDS: DOCUSATE SODIUM 100 MG CAPSULE PO (08:51)
[2021-03-06] MEDS: ROSUVASTATIN 10 MG TABLET PO (08:51)
[2021-03-06] MEDS: METOPROLOL TARTRATE 25 MG TABLET PO (08:51)
[2021-03-06] MEDS: methiMAzole 10 MG TAB PO (08:51)
[2021-03-06] MEDS: CHOLECALCIFEROL 1,000 UNITS TABLET 1000 UNITS PO (08:51)
--- NOTE | 2021-03-06 12:17 | PC.NURSE ---
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
--- NOTE | 2021-03-06 15:10 | PCOTNOTE ---
On 03/06/21, the student, [ Katy Hall ], provided care and completed [facility] documentation on this patient. I have reviewed the student's documentation and agree with the findings. MS
--- NOTE | 2021-03-13 14:23 | PCOTNOTE ---
On 03/05/21, the student, [ Katy Hall], provided care and completed [facility] documentation on this patient. I have reviewed the student's documentation and agree with the findings. SM
== END 2021-03-06 12:10 | disposition home health service (06) | DRG 948 ==
PROVIDERS: Nurse Practitioner; Admitting Provider Emergency Medicine; PCP Family Medicine; Visit Provider Emergency Medicine
DX: R53.1 Weakness (principal); I48.20 Chronic atrial fibrillation, unspecified; I11.0 Hypertensive heart disease with heart failure; I50.9 Heart failure, unspecified; E05.90 Thyrotoxicosis, unspecified without thyrotoxic crisis or storm; E66.9 Obesity, unspecified; G47.33 Obstructive sleep apnea (adult) (pediatric); Z96.653 Presence of artificial knee joint, bilateral; Z96.641 Presence of right artificial hip joint; Z47.1 Aftercare following joint replacement surgery; Z87.891 Personal history of nicotine dependence; Z79.01 Long term (current) use of anticoagulants
CPT/HCPCS: 36415; 73700; 83605; 85027; 97110; 97161; 97165; 97530; 97535; A9270

== ENCOUNTER 2021-04-25 06:43 | Outpatient (CLI) | payer MEDICARE, BC, SELFPAY ==
--- NOTE | ~2021-04-25 | MR_ITS ---
EXAMINATION: MR lumbar spine wo con DATE: 04/25/2021 07:47 INDICATION: Bulging disc. TECHNIQUE: Magnetic resonance imaging (MRI) of the lumbar spine was performed without intravenous con trast. Sequences included sagittal T2-weighted FSE, sagittal T2-weighted FS FSE, sagittal T1-weighted FSE, and axial T2-weighted FSE. COMPARISON: Lumbar spine CT 02/22/2021 FINDINGS: There is 3 degrees levocurvature of lumbar spine. There is 3 mm retrolisthesis of L1 on L2 and 4 mm anterolisthesis of L4 on L5. There is mild chronic anterior wedging of T12 and L1 vertebral bodies. There are Schmorl's nodes at most levels. There is severely decreased disc height from T12-L1 through L5-S1 with endplate remodeling. There are disc calcifications at T12-L1. There is ligamentum flavum hypertrophy at the disc levels from L1-L2 through L4-L5. The distal spinal cord signal intens ity is normal. The conus medullaris is at L1. The following disc levels are specifically discussed: T12-L1: The disc is bulging. There is mild bilateral facet joint osteoarthritis. There is mild right neural foraminal stenosis. There is mild central canal stenosis. L1-L2: The disc is bulging as an annular fissure. There is moderate bilateral facet joint osteoarthri tis. There is moderate bilateral neural foraminal stenosis. There is mild central canal stenosis. L2-L3: The disc is bulging as an annular fissure. There is mild bilateral facet joint osteoarthritis. There is moderate right and mild left neural foraminal stenosis. There is mild central canal stenosi s. L3-L4: The disc is bulging and has an annular fissure. There is moderate bilateral facet joint osteoa rthritis. There is moderate bilateral neural foraminal stenosis. There is mild central canal stenosis . L4-L5: The disc is bulging and has an annular fissure. There is severe bilateral facet joint osteoart hritis. There is mild bilateral neural foraminal stenosis. There is mild central canal stenosis. L5-S1: The disc is bulging and has an annular fissure. There is severe bilateral facet joint osteoart hritis. There is mild right and moderate left neural foraminal stenosis. There is mild central canal stenosis. IMPRESSION: 1. Severe lumbar spondylosis, stable from 02/22/2021. Reviewed, dictated and finalized at location A.
== END 2021-04-25 06:44 | disposition home or self-care (01) ==
LOC: CHSIMG 06:54
PROVIDERS: PCP Family Medicine
DX: M48.062 Spinal stenosis, lumbar region with neurogenic claudication (principal); Z96.641 Presence of right artificial hip joint
CPT/HCPCS: 72148

== ENCOUNTER 2021-04-27 14:51 | Outpatient (RCR) | payer MEDICARE, BC, SELFPAY ==
--- NOTE | 2021-04-27 15:55 | PTOPEVAL ---
Thank you for referring Jose Gates to [facility].? The patient is scheduled to be seen for therapy? ____x/week for ___ weeks. Please review, sign, date and return this plan of care RYAN. I agree with and certify that the following plan of care is medically necessary. Referring Physician Date Admitting Provider: Attending Provider: AKIN CHAVIRA Referring Provider: *PT Outpatient Evaluation Start: 04/27/21 14:49 Freq: Status: Active Protocol: Document 04/27/21 14:49 ACR (Rec: 04/27/21 15:54 ACR [id number]) Therapy Assessment Status Assessment Status Assessment Status Evaluation Outpatient Past Medical History Cardiovascular History Hx Atrial Fibrillation Yes Hx Cardiac Catheterization Yes Musculoskeletal History Hx Orthopedic Surgery Yes: rt hip 02/19/21 dr murillo at [facility] Endocrine History Hx Hypothyroidism Yes Evaluation Information Problem Diagnosis lumbar stenosis and unsteady balance Onset 04/16/21 Subjective Information Patient reports that he has no Query Text:As Reported By Patient/ back pain, but has difficulty Family with his balance. The patient states that he was released from the hip doctor two weeks ago. He states that he feels that with the cane he feels he is moving too quick with it. He states that standing for and walking for a period of time because he fatigues quickly. He states that getting up from a seated position without arms is near impossible. Patient states that he has fallen between 6-8 this year. 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 Prior Level of Function Activity Level (Last 3 Months) Occupation retired Hand Dominance Right Activity of Daily Living Ability Independent Indoor/Home Mobility Independent Community Mobility Independent Stairs Ability Independent Functional Cognition (Planning, Shopping Independent , Taking Medications) Cooking Yes Cleaning Yes Laundry Yes Lashae
--- NOTE | 2021-05-22 07:58 | PTOPEVAL ---
Thank you for referring Jose Gates to [facility].? The patient is scheduled to be seen for therapy? ____x/week for ___ weeks. Please review, sign, date and return this plan of care RYAN. I agree with and certify that the following plan of care is medically necessary. Referring Physician Date Admitting Provider: Attending Provider: AKIN CHAVIRA Referring Provider: *PT Outpatient Evaluation Start: 04/27/21 14:49 Freq: Status: Active Protocol: Document 05/22/21 07:04 ACR (Rec: 05/22/21 07:56 ACR [id number]) Therapy Assessment Status Assessment Status Assessment Status Discharge Outpatient Past Medical History Cardiovascular History Hx Atrial Fibrillation Yes Hx Cardiac Catheterization Yes Musculoskeletal History Hx Orthopedic Surgery Yes: rt hip 02/19/21 dr murillo at [facility] Endocrine History Hx Hypothyroidism Yes Evaluation Information Problem Diagnosis lumbar stenosis and unsteady balance Onset 04/16/21 Subjective Information Patient reports that since Query Text:As Reported By Patient/ beginning therapy he has been Family feeling like he is able to ambulate without the cane for a longer period of time. He states that he still fatigues quickly, but nothing compared to before he started therapy. The patient states that he is doing all of his exercises at home and is going to start a walking program to help his endurance so today is a good last day. Pain Assessment Timing of Pain Assessment Timing of Pain Assessment Pre-Treatment Self Report Self Report Pain Level 0 Pain Score Pain Score 0: Self Report Lower Extremity Muscle Strength Testing Hip Strength Bilateral Hip Flexion Strength 4+ Good + Knee Strength Bilateral Knee Flexion Strength 5 Normal Knee Extension Strength 4+ Good + Balance Assessment Tinetti Balance Assessment Sitting Balance Steady, safe Ability to Arise Able, uses arms to help Attempts to Arise Arises on 1st attempt Immediate Standing Balance Steady w/o support Standing Balance Steady, wide stance Nudged Response Steady Standing with Eyes Closed Unsteady Step Pattern Turning 360 Degrees Continuous steps Stability Turning 360 Degrees Steady Sitting Down Uses arms
== END 2021-05-22 09:07 | disposition home or self-care (01) ==
LOC: CHSPT 14:51
PROVIDERS: PCP Family Medicine
DX: M48.062 Spinal stenosis, lumbar region with neurogenic claudication (principal); Z96.641 Presence of right artificial hip joint
CPT/HCPCS: 97110; 97161; 97530

== ENCOUNTER 2024-04-12 21:02 | Emergency (ER) | payer MEDICARE, BC, SELFPAY ==
--- NOTE | ~2024-04-12 | CT_ITS ---
History: Trauma PROCEDURE: CT head without contrast. COMPARISON: 02/20/2021 TECHNIQUE: Axial imaging of the head performed from the skull base to the vertex without IV contrast. Sagittal a nd coronal reformations obtained. FINDINGS: The ventricles are normal in size, shape and position. There is no mass, mass effect or midline shift. There is no abnormal extra-axial fluid collection or intracranial hemorrhage. Visualized paranasal sinuses are clear. The mastoid air cells are well aerated. Large left frontal scalp hematoma, without underlying fracture. Impression: No acute intracranial hemorrhage or suspicious mass effect. Large left frontal scalp hematoma without underlying fracture Reviewed, dictated and finalized at location A. Impression: No acute intracranial hemorrhage or suspicious mass effect. Large left frontal scalp hematoma without underlying fracture
--- NOTE | ~2024-04-12 | CT_ITS ---
History: Trauma PROCEDURE: CT facial bones without contrast. COMPARISON: TECHNIQUE: Multiple contiguous axial images of the bones of the face performed without the administration of int ravenous contrast. Sagittal and coronal reformations obtained. FINDINGS: No acute facial fractures are appreciated. Redemonstration of the large left frontal scalp hematoma, without underlying fracture. Impression: No acute facial fractures, detailed above Reviewed, dictated and finalized at location A. Impression: No acute facial fractures, detailed above
--- NOTE | ~2024-04-12 | XR_ITS ---
HISTORY: hand injury COMPARISON: 03/09/2013 TECHNIQUE: 2 views of the left hand were performed. FINDINGS: Severe degenerative disease is identified within the first carpometacarpal joint space Possible palmar dislocation of the proximal phalanx of the second digit at the MCP joint with overlyi ng soft tissue swelling. IMPRESSION: Palmar dislocation of the proximal phalanx of the second digit at the level of the metac arpophalangeal joint space with overlying soft tissue swelling. Reviewed, dictated and finalized at location A. IMPRESSION: Palmar dislocation of the proximal phalanx of the second digit at the level of the metacarpophalangeal joint space with overlying soft tissue swe lling.
--- NOTE | ~2024-04-12 | CT_ITS ---
History: Trauma PROCEDURE: CT cervical spine without intravenous contrast. COMPARISON: None TECHNIQUE: Multiple contiguous axial images of the cervical spine were performed without the administration of i ntravenous contrast. DLP: 623.7 mGy-cm FINDINGS: Straightening of the normal curvature of the cervical spine is identified, likely muscular in origin. No acute fractures are present. Severe degenerative disease is identified with osteophyte formation, disc space narrowing, endplate c hanges and vacuum phenomena. The bilateral lung apices are unremarkable. No soft tissue abnormality is present. The airway is unremarkable. Impression: Straightening of the normal curvature of the cervical spine, likely muscular in origin. Severe degenerative disease, without acute fracture. Reviewed, dictated and finalized at location A. Impression: Straightening of the normal curvature of the cervical spine, likely muscular in origin. Severe degenerative disease, without acute fracture.
[2024-04-12 21:02] VITALS: BP 136/95; PULSE 97; RESP 16; TEMP 36.9; O2SAT 99
--- NOTE | 2024-04-12 22:04 | ED.FALL ---
HPI - Fall General Chief Complaint: Fall Stated Complaint: Fall Time Seen by Provider: 04/12/24 21:08 Source: patient, family and EMS Mode of arrival: EMS Limitations: no limitations History of Present Illness HPI Narrative: this is a 84-year-old male that had a fall tripped over a sidewalk after leaving a local establishment area was dark misstepped with no dizziness no lightheadedness. Has some skin tears to the left hand has good range of motion in his hand with no numbness or tingling, patient did not lose consciousness and has a scalp hematoma with abrasions and a small laceration to the bridge of his nose there is no nausea vomiting no headache currently no pain no fever chills no chest pain or shortness of breath. MD complaint: fall Onset (ago): hour(s) Fall from: standing Fall witnessed: yes, by bystander Place fall occurred: street Loss of consciousness: none Prolonged down time: no Context: tripped/slipped Location of injury: head, face and other Location of injury - extremities: Left: hand ( skin tear) Related Data Home Medications Medication Instructions Recorded Confirmed metoprolol tartrate 25 mg tablet 25 mg PO DAILY 07/30/19 04/12/24 rosuvastatin 10 mg tablet 10 mg PO DAILY 07/30/19 04/12/24 ascorbate calcium (vitamin C) 500 500 mg PO BID 10/09/19 04/12/24 mg tablet rivaroxaban 20 mg tablet (Xarelto) 20 mg PO DAILY 10/09/19 04/12/24 aspirin 81 mg tablet,delayed 81 mg PO DAILY 01/20/21 04/12/24 release cholecalciferol (vitamin D3) 25 5,000 unit PO DAILY 06/14/22 04/12/24 mcg (1,000 unit) capsule (Vitamin D3) [id number] 150 mcg-vit K1 1 tablet PO DAILY 06/14/22 04/12/24 30 mcg-lycop 300 mcg-lutein tablet (Centrum Minis Men 50 Plus) furosemide 40 mg tablet 20 mg PO DAILY 12/21/23 04/12/24 losartan 25 mg tablet 12.5 mg PO DAILY 12/22/23 04/12/24 Allergies Allergy/AdvReac Type Severity Reaction Status Date / Time naproxen [From Aleve] Allergy Mild muscle Verified 04/12/24 21:14 soreness Review of Systems Review of Systems: All systems reviewed & are unremarkable except as noted in HPI and below PMFSH Past Medical History Medical History Afib CHF (congestive heart failure), NYHA class I Heart disease Hypertension Hyperthyroidism Obstructive sleep apnea SOB (shortness of breath) Thyroid disease Surgical History Surgical History History of bilateral knee replacement Status post right hip replacement Family History Family History Mother Diabetes mellitus Father Family history of malignant neoplasm Family history of chronic obstructive pulmonary disease Social History Social History Smoking status: Former smoker Second hand tobacco smoke exposure: Yes Alcohol intake: never Substance use: never Substance use type: does not use Lack of Transportation: No Lack of Food: Never True Current Housing: I Have Housing Concerned About Future Housing: No Difficulty Paying Gas/Electric Bills: No Difficulty Paying for Meds: No Currently Unemployed: No Education: Trade/Vocational Certificate Difficulty w/ Childcare or Family Care: No Living arrangements: with family Occupation/Education: retired Gender identity (if verbalized by the patient): Male Sexual Orientation (if Verbalized by the Patient): Straight or Heterosexual Spiritual care concerns: No Agree to blood products: Yes Exam Const: General: healthy appearing, no acute distress and alert Nutritional Appearance: well nourished Orientation/consciousness: patient oriented x3 Limitations: no limitations HENMT: Head: normal to inspection, contusion, hematoma and laceration Face and sinus: normal facial exam Eyes: Conjunctivae: conjunctivae normal Pup
[2024-04-12] MEDS: LIDOCAINE HCL 1% LOCAL INJ 10 ML VIAL INFILTRATE (22:08)
[2024-04-12] MEDS: TETANUS,DIPHTHERIA,AC PERTUSSIS ADULT 0.5 ML (ADACEL) IM (22:09)
[2024-04-12 22:15] VITALS: BP 143/81; PULSE 88; RESP 16; O2SAT 95
== END 2024-04-12 22:37 | disposition home or self-care (01) ==
PROVIDERS: Emergency Provider Emergency Medicine; PCP Family Medicine
DX: S61.412A Laceration without foreign body of left hand, initial encounter (principal); S01.21XA Laceration without foreign body of nose, initial encounter; I48.91 Unspecified atrial fibrillation; I11.0 Hypertensive heart disease with heart failure; I50.9 Heart failure, unspecified; Z87.891 Personal history of nicotine dependence; Z23 Encounter for immunization; Z79.899 Other long term (current) drug therapy; W01.0XXA Fall on same level from slipping, tripping and stumbling without subsequent striking against object, initial encounter; Y92.410 Unspecified street and highway as the place of occurrence of the external cause
CPT/HCPCS: 12011; 70450; 70486; 72125; 73130; 90471; 90715; 99284; J2003

== ENCOUNTER 2024-05-04 10:59 | Outpatient (CLI) | payer MEDICARE, BC, SELFPAY ==
--- NOTE | ~2024-05-04 | XR_ITS ---
XR hand LT 2V Ordering provider: Ivy Newton PA-C History: . Fall, Lt. 5th digit pain/contusions x3 weeks . Comparison: April 12, 2024 FINDINGS: BONES: No acute fracture or dislocation. JOINT SPACES: Narrowing of the proximal and distal interphalangeal joints. Narrowing of the metacarpo phalangeal joints and in the first, second and third fingers. Narrowing of the interphalangeal joint of the thumb. Osteoarthritic changes of the first carpometacarpal joint. SOFT TISSUES: Unremarkable. IMPRESSION: No acute osseous abnormality left hand. Polyarticular osteoarthritic changes. Reviewed, dictated and finalized at location A.
== END 2024-05-04 11:00 | disposition home or self-care (01) ==
LOC: CHSIMG 11:00
PROVIDERS: PCP Family Medicine; Visit Provider Student in an Organized Health Care Education/Training Program
DX: S69.92XA Unspecified injury of left wrist, hand and finger(s), initial encounter (principal); M19.042 Primary osteoarthritis, left hand
CPT/HCPCS: 73120